=== PATIENT | female | born 1960 | race African-American/Black ===

== ENCOUNTER 2017-07-25 10:16 | Emergency (ER) | payer BC, OTHER ==
[~2017-07-25] VITALS: Ht 157.5 cm; Wt 81.6 kg
[2017-07-25 10:45] VITALS: BP 136/89
[2017-07-25] MEDS ORDERED: ACETAMINOPHEN 325 MG TAB PO ONE ×2 (10:48→11:00)
[2017-07-25] MEDS ORDERED: cefTRIAXone SOD 1,000 MG VL IM ONE (13:00)
== END 2017-07-25 13:48 | disposition home or self-care (01) ==
LOC: ER 10:16
DX: J20.9 Acute bronchitis, unspecified (principal); J02.9 Acute pharyngitis, unspecified; N39.0 Urinary tract infection, site not specified; F17.210 Nicotine dependence, cigarettes, uncomplicated
CPT/HCPCS: 71046; 81002; 96372; 99284; J0696

== ENCOUNTER → 2019-03-06 | Outpatient (CLI) | payer BC ==
[2019-03-06 10:58] LABS: Basophils # (auto) 0.1 uL; Basophils % (auto) 1.5 % (0.0-2.0); Eosinophils # (auto) 0.2 uL; Eosinophils % (auto) 4.6 % (0.0-7.0); Hematocrit 41.2 % (36.0-46.0); Hemoglobin 14.2 g/dL (12.2-16.2); Lymphocytes # (auto) 2.3 uL; Lymphocytes % (auto) 54.3 % (10.0-50.0); Mean Corpuscular Hgb Conc. 34.4 g/dL (32.0-36.0); Mean Corpuscular Volume 98.9 fL (80.0-100.0); Monocytes # (auto) 0.4 uL; Neutrophils # (auto) 1.3 uL; Neutrophils % (auto) 29.6 % (37.0-80.0); Nucleated Red Blood Cells % 0.1 %; Platelet Count (auto) 233 10^3/uL (140-450); Red Blood Cells 4.17 10^6/uL (4.0-5.20); Red Cell Distribution Width 14.6 % (11.8-14.3); White Blood Cell 4.3 10^3/uL (4.4-10.8)
[2019-03-06 11:13] LABS: INR 0.93 (0.9-1.15); Partial Thromboplastin Time 29.6 sec (23.64-32.05)
[2019-03-06 11:33] LABS: Albumin 3.5 g/dL (3.4-5.0); Potassium 4.2 mmol/L (3.5-5.1)
[2019-03-06 11:41] LABS: BUN/Creatinine Ratio 15.7; Bilirubin, Total 0.3 mg/dL (0.2-1.0); Total Protein 7.7 g/dL (6.4-8.2)
== END | disposition home or self-care (01) ==
LOC: LAB 10:04
DX: Z00.00 Encounter for general adult medical examination without abnormal findings (principal); D17.0 Benign lipomatous neoplasm of skin and subcutaneous tissue of head, face and neck; E66.9 Obesity, unspecified
CPT/HCPCS: 36415; 80053; 80061; 85025; 85610; 85730

== ENCOUNTER 2022-11-22 16:47 | Emergency (ER) | payer BC ==
[~2022-11-22] VITALS: Ht 157.5 cm; Wt 81.8 kg
[2022-11-22 17:25] LABS: Basophils # (auto) 0.1 10 ^3/uL (0-0.2); Basophils % (auto) 0.9 % (0.0-2.0); Eosinophils # (auto) 0.2 10 ^3/uL (0-0.8); Eosinophils % (auto) 3.4 % (0.0-7.0); Hematocrit 41.6 % (36.0-46.0); Hemoglobin 14.1 g/dL (12.2-16.2); Lymphocytes # (auto) 2.9 10 ^3/uL (0.4-5.4); Lymphocytes % (auto) 44.3 % (10.0-50.0); Mean Corpuscular Hemoglobin 33.7 pg (28.0-32.0); Mean Corpuscular Volume 99.2 fL (80.0-100.0); Monocytes # (auto) 0.6 10 ^3/uL (0-1.3); Monocytes % (auto) 8.9 % (0.0-12.0); Neutrophils # (auto) 2.8 10 ^3/uL (1.6-8.6); Neutrophils % (auto) 42.5 % (37.0-80.0); Nucleated Red Blood Cells % 0.1 %; Red Blood Cells 4.19 10^6/uL (4.0-5.20); Red Cell Distribution Width 14.8 % (11.8-14.3); White Blood Cell 6.7 10^3/uL (4.4-10.8)
[2022-11-22 17:28] LABS: Urine Bacteria NONE SEEN /hpf (None Seen); Urine Blood Negative /uL (Negative); Urine Specific Gravity 1.015 (1.001-1.035); Urine WBC <1 /hpf (0 - 5)
[2022-11-22 17:51] LABS: Albumin 3.5 g/dL (3.4-5.0); Calcium 8.9 mg/dL (8.5-10.1); Magnesium 2.3 mg/dL (1.6-2.6); Potassium 4.3 mmol/L (3.5-5.1)
[2022-11-22 17:54] LABS: BUN/Creatinine Ratio 17.9 (10.0-20.0); Bilirubin, Total 0.3 mg/dL (0.2-1.0); Total Protein 7.3 g/dL (6.4-8.2)
[2022-11-23 00:06] VITALS: BP 155/100
== END 2022-11-23 00:11 | disposition home or self-care (01) ==
LOC: ER 16:47
DX: R07.89 Other chest pain (principal); K29.70 Gastritis, unspecified, without bleeding; K21.9 Gastro-esophageal reflux disease without esophagitis; F17.210 Nicotine dependence, cigarettes, uncomplicated; Z88.5 Allergy status to narcotic agent; Z88.1 Allergy status to other antibiotic agents
CPT/HCPCS: 36415; 71045; 76705; 80053; 81001; 83735; 84484; 85025; 93005

== ENCOUNTER 2024-06-29 18:50 | Emergency (ER) | payer BC ==
[~2024-06-29] VITALS: Ht 157.5 cm; Wt 90.9 kg
[2024-06-29 19:05] VITALS: BP 161/75; PULSE 108; RESP 21; O2SAT 100
--- NOTE | 2024-06-29 19:27 | ED.PDOC ---
History of Present Illness HPI Comments 64-year-old female, with a history of GERD, HTN, obesity, and tobacco use, presents with complaint of shortness of breath, productive cough with associated chest-wall pain, and chills for 1 week, today. Patient describes phlegm as green in appearance and, recently, returning from a trip from [place]. She reports on no further pertinent or relevant information, such as recent sick contact, injuries, or strenuous activities. She denies having any hemoptysis, nausea, vomiting, fever, or other associated symptoms or modifying at this time Chief Complaint: Flu like Time Seen by MD: 18:50 Primary Care Provider: KURT Reviewed Notes: Nurses Notes, Medications, Allergies Allergies: Coded Allergies: Codeine (Verified Allergy, Unknown, 11/22/22) Erythromycin (Verified Allergy, Unknown, 11/22/22) Morphine (Verified Allergy, Unknown, 11/22/22) Uncoded Allergies: UNKNOWN (Allergy, Unknown, 07/25/17) Information Source: Patient Mode of Arrival: Ambulatory Severity: Moderate Timing: Weeks Duration: Since onset Prehospital treatment: None Past Medical History PAST MEDICAL HISTORY: GERD, HTN Past Medical History (Other): Obesity Surgical History: Denies all surgeries DISPLAY FABRICATOR History: Denies all DISPLAY FABRICATOR Hx Family History Family History: Unknown Social History Smoker: Cigarettes Alcohol: Denies ETOH Use Drugs: Denies Drug Use Lives In: Home Constitutional: reports: chills Respiratory: reports: cough, shortness of breath Musculoskeletal: reports: others (chest wall pain ) All Other Systems: Reviewed and Negative (negative unless otherwise stated above or in HPI) Physical Exam General Appearance: No Apparent Distress, Obese HEENT: Normal ENT Inspection, Pharynx Normal, TMs Normal Neck: Full Range of Motion, Non-Tender, Normal, Normal Inspection Respiratory: Chest Non-Tender, Lungs Clear, No Accessory Muscle Use, No Respiratory Distress, Normal Breath Sounds Cardiovascular: No Edema, No JVD, No Murmur, No Gallop, Normal Peripheral Pulses, Regular Rate/Rhythm Breast Exam: Deferred Gastrointestinal: No Organomegaly, Non Tender, No Pulsatile Mass, Normal Bowel Sounds, Soft Genitalia: Deferred Pelvic: Deferred Rectal: Deferred Extremities: No calf tenderness, Normal capillary refill, Normal inspection, Normal range of motion, Non-tender, No pedal edema Musculoskeletal : Apperance: Normal Neurologic: Alert, charge attendant II-XII nml as Tested, No Motor Deficits, Normal Affect, Normal Mood, No Sensory Deficits Cerebellar Function: Normal Reflexes: Normal Skin: Dry, Normal Color, Warm Lymphatic: No Adenopathy Was a procedure done? Was a procedure done?: No Differential Dx Considerations may include: URI, viral syndrome, Influenza A/B, Covid19, bronchitis, PNA, pleural effusions X-Ray, Labs, Meds, VS Vital Signs Date Time Temp Pulse Resp B/P (MAP) Pulse Ox O2 Delivery O2 Flow Rate FiO2 06/29/24 19:05 102.1 108 21 161/75 (103) 100 06/29/24 19:05 21 100 Room Air* 0 21 Lab Test 06/29/24 19:06 Range/Units Influenza Type A Antigen Negative Negative Influenza Type B Antigen Negative Negative SARS-CoV-2 Antigen (Rapid) Negative NEGATIVE [place] [address] Ph: [phone] DIAGNOSTIC IMAGING Diagnostic Imaging Report : [id number] Signed PATIENT: DL EDMONDSON ACCT: [id number] UNIT: [id number] : 1960 LOC: ER ROOM / BED: / AGE / SEX: 64 / F ADM STATUS: REG ER SERVICE 02 ORDERING PHYSICIAN: LEO RODRIGUEZ PROCEDURE(s): CXR1 - CHEST XRAY 1 VIEW REASON: cough ORDER NUMBER(s): [id number], ACCESSION NUMBER(s): [id number] EXAM: XY CHEST XRAY 1 VIEW TECHNIQUE: Single frontal chest radiograph CLINICAL HISTORY: cough COMPARISON: XY CHEST PORTABLE on DOS: 11/22/22 Findings/Impression: Frontal chest radiograph demonstrates no acute osseous or superficial soft tissue abnormalities. The trachea is midline. The cardiac silhouette and mediastinum are within normal limits. No pneumothorax, pleural effusions, or consolidations. ATED BY: KASSIE SONG DO DICTATED DATE/TIME: 06/29/242030 SIGNED BY: KASSIE SONG DO SIGNED DATE/TIME: 06/29/242030 CC: X-Ray, Labs, Meds, VS Comment Imaging: X-rays and CT scans were reviewed and interpreted by this provider, imaging shows no fractures and no pathological disease. Pending radiology maikol lange. Laboratory: Labs reviewed and interpreted by this provider. No significant abnormalities noted. Patient has prior medical visits reviewed. Med reconciliation performed Vital signs reviewed Time of 1ST Reevaluation: 19:20 Reevaluation 1ST: Unchanged Patient Education/Counseling: Diagnosis, Treatment, Need For Follow Up (Patient advised to follow-up in the emergency room in the next 24 to 48 hours if symptoms do not improve. Advised follow-up with PCP in the next 3 to 5 days. Patient verbalized understanding. ) Family Education/Counseling: Diagnosis, Treatment Additional Information I reviewed the following notes from patient's past medical encounters: previous ED visit physician document on 11/23/2023 The following tests were ordered, and results were reviewed by me: rapid influenza test A&B, Covid19 antigen nitesh, CXR I reviewed and agreed with the following test results read by other providers: CXR I discussed treatment and results with medical personnel Departure 1 Departure Time of Disposition: 21:45 Impression: Primary Impression: Upper respiratory infection Qualified Codes: J06.9 - Acute upper respiratory infection, unspecified Disposition: HOME / SELF CARE / HOMELESS Condition: Fair e-Prescriptions Amoxicillin & Pot Clavulanate (AUGMENTIN TABLET) 875 Mg Tb 875 MG PO BID for 7 Days, #14 TAB Prov: LEO RODRIGUEZ 06/29/24 Promethazine-Dm (Promethazine Dm 6.25-15 mg/5Ml) 1 Carisa Carisa 5 ML PO TID PRN, #240 ML Prov: LEO RODRIGUEZ 06/29/24 Discharged With: Self Critical Care Note Critical Care Time?: No Stability Stability form required: No Heart Score Heart Score: Heart Score Response (Comments) Value History N/A 0 EKG N/A 0 Age N/A 0 Risk Factors N/A 0 Troponin N/A 0 Total 0 I personally scribed for LEO RODRIGUEZ ([email or web address]) on 06/29/24 at 19:27. Electronically submitted by Carlos Meyers ([email or web address]). I personally scribed for LEO RODRIGUEZ ([email or web address]) on 06/29/24 at 21:12. Electronically submitted by Carlos Meyers ([email or web address]). LEO RODRIGUEZ [facility] Jun 29, 2024 19:27
[2024-06-29 19:44] LABS: COVID19 ANTIGEN SOFIA FIA NEGATIVE (NEGATIVE)
[2024-06-29 19:45] LABS: Rapid Influenza A Negative (Negative); Rapid Influenza B Negative (Negative)
--- NOTE | 2024-06-29 20:34 | DVH ---
EXAM: XY CHEST XRAY 1 VIEW TECHNIQUE: Single frontal chest radiograph CLINICAL HISTORY: cough COMPARISON: XY CHEST PORTABLE on DOS: 11/22/22 Findings/Impression: Frontal chest radiograph demonstrates no acute osseous or superficial soft tissue abnormalities. The trachea is midline. The cardiac silhouette and mediastinum are within normal limits. No pneumothorax, pleural effusions, or consolidations.
[2024-06-29] MEDS ORDERED: PROM1SOL4 PO (21:46)
[2024-06-29] MEDS ORDERED: AUG875T PO (21:46)
[2024-06-29] MEDS: ACETAMINOPHEN 325 MG TAB PO ONE (22:38)
== END 2024-06-29 22:40 | disposition home or self-care (01) ==
LOC: ER 18:50
DX: J06.9 Acute upper respiratory infection, unspecified (principal); K21.9 Gastro-esophageal reflux disease without esophagitis; I10 Essential (primary) hypertension; F17.210 Nicotine dependence, cigarettes, uncomplicated; Z88.1 Allergy status to other antibiotic agents; Z88.6 Allergy status to analgesic agent; Z20.822 Contact with and (suspected) exposure to COVID-19
CPT/HCPCS: 36415; 71045; 87426; 87804

== ENCOUNTER 2024-07-16 08:43 | Inpatient (IN) | payer BC, OTHER ==
[~2024-07-16] VITALS: Ht 157.5 cm; Wt 95.6 kg
[~2024-07-16 08:43] MED LIST: ALBU108A5 IN; AUG875T PO; BUDE1AER16 IN; METH-1181 PO; PROM1SOL4 PO
--- NOTE | 2024-07-16 09:01 | ED.PDOC ---
History of Present Illness HPI Comments 64-year-old female came to the ER stating that she has been having shortness a breath epigastric pain especially when swelling for the past two days. She does have a history of hypertension congestive heart failure for which she was taking Lasix till few days ago. Her physician has discontinue Lasix and started on Bumex. She continues to have shortness a breath with pain in the triage area. Her saturation pristine on room air. Normal heart rate. Denies any other symptoms. Time Seen by MD: 08:44 Primary Care Provider: KURT Reviewed Notes: Nurses Notes, Medications, Allergies Allergies: Coded Allergies: Codeine (Verified Allergy, Unknown, 11/22/22) Erythromycin (Verified Allergy, Unknown, 11/22/22) Morphine (Verified Allergy, Unknown, 11/22/22) Uncoded Allergies: UNKNOWN (Allergy, Unknown, 07/25/17) Home Meds Active Scripts Amoxicillin & Pot Clavulanate (AUGMENTIN TABLET) 875 Mg Tb, 875 MG PO BID for 7 Days, #14 TAB Prov:LEO RODRIGUEZ 06/29/24 Promethazine-Dm (Promethazine Dm 6.25-15 mg/5Ml) 1 Carisa Carisa, 5 ML PO TID PRN, #240 ML Prov:LEO RODRIGUEZ 06/29/24 Information Source: Patient Mode of Arrival: Wheelchair Severity: Moderate Timing: Days Duration: Since onset Past Medical History PAST MEDICAL HISTORY: GERD, HTN Surgical History: Denies all surgeries FIELD TRAFFIC INVESTIGATOR History: Denies all FIELD TRAFFIC INVESTIGATOR Hx Family History Family History: Unknown Social History Smoker: Cigarettes Alcohol: Denies ETOH Use Drugs: Denies Drug Use Lives In: Home Constitutional: denies: chills, diaphoresis, fatigue, fever, malaise, sweats, weakness, others EENTM: denies: blurred vision, double vision, ear bleeding, ear discharge, ear drainage, ear pain, ear ringing, eye pain, eye redness, hearing loss, mouth pain, mouth swelling, nasal discharge, nose bleeding, nose congestion, nose pain, photophobia, tearing, throat pain, throat swelling, voice changes, others Respiratory: reports: shortness of breath; denies: cough, hemoptysis, orthopnea, SOB at rest, SOB with excertion, stridor, wheezing, others Cardiovascular: reports: chest pain; denies: dizzy spells, diaphoresis, Dyspnea on exertion, edema, irregular heart beat, left arm pain, lightheadedness, palpitations, PND, syncope, others Gastrointestinal: denies: abdomen distended, abdominal pain, blood streaked bowels, constipated, diarrhea, dysphagia, difficulty swallowing, hematemesis, melena, nausea, poor appetite, poor fluid intake, rectal bleeding, rectal pain, vomiting, others Genitourinary: denies: abnormal vagina bleeding, burning, dyspareunia, dysuria, flank pain, frequency, hematuria, incontinence, pain, , vagina discharge, urgency, others Neurological: denies: dizziness, fainting, headache, left sided numbness, left sided weakness, numbness, paresthesia, pre-existing deficit, right sided numbness, right sided weakness, seizure, speech problems, tingling, tremors, weakness, others Musculoskeletal: denies: back pain, gout, joint pain, joint swelling, muscle pain, muscle stiffness, neck pain, others Integumetry: denies: bruises, change in color, change in hair/nails, dryness, laceration, lesions, lumps, rash, wounds, others Allergic/Immunocompromised: denies: Difficulty Healing, Frequent Infections, Hives, Itching, others Hematologic/Lymphatic: denies: anemia, blood clots, easy bleeding, easy bruising, swollen glands, others Endocrine: denies: excessive hunger, excessive sweating, excessive thirst, excessive urination, flushing, intolerance to cold, intolerance to heat, unexplained weight gain, unexplained weight loss, others Psychiatric: denies: anxiety, bipolar disorder, depression, hopeless, panic disorder, schizophrenia, sleepless, suicidal, others Physical Exam General Appearance: Moderate Distress HEENT: Normal ENT Inspection, Pharynx Normal, TMs Normal Neck: Full Range of Motion, Non-Tender, Normal, Normal Inspection Respiratory: Chest Non-Tender, Lungs Clear, No Accessory Muscle Use, No Respiratory Distress, Normal Breath Sounds Cardiovascular: No Edema, No JVD, No Murmur, No Gallop, Normal Peripheral Pulses, Regular Rate/Rhythm Breast Exam: Deferred Gastrointestinal: No Organomegaly, Non Tender, No Pulsatile Mass, Normal Bowel Sounds, Soft Genitalia: Deferred Pelvic: Deferred Rectal: Deferred Extremities: No calf tenderness, Normal capillary refill, Normal inspection, Normal range of motion, Non-tender, No pedal edema Musculoskeletal : Apperance: Normal Neurologic: Alert, ceramic painter II-XII nml as Tested, No Motor Deficits, Normal Affect, Normal Mood, No Sensory Deficits Cerebellar Function: Normal Reflexes: Normal Skin: Dry, Normal Color, Warm Peripheral Pulses: 3+ Radial (R), 3+ Radial (L) Lymphatic: No Adenopathy Was a procedure done? Was a procedure done?: No Differential Dx Considerations may include: Hypertension Pneumonitis X-Ray, Labs, Meds, VS Vital Signs Date Time Temp Pulse Resp B/P (MAP) Pulse Ox O2 Delivery O2 Flow Rate FiO2 07/16/24 12:03 97.9 79 20 133/71 (91) 99 97.9 07/16/24 09:31 85 20 93 Room Air* 0 21 07/16/24 09:01 92 07/16/24 08:59 20 97 Room Air* 0 21 07/16/24 08:59 99.4 80 20 158/83 (108) 97 Lab Test 07/16/24 09:48 07/16/24 09:01 Range/Units White Blood Count 8.4 4.4-10.8 10^3/uL Red Blood Count 4.40 4.0-5.20 10^6/uL Hemoglobin 14.2 12.2-16.2 g/dL Hematocrit 42.8 36.0-46.0 % Mean Corpuscular Volume 97.2 80.0-100.0 fL Mean Corpuscular Hemoglobin 32.2 H 28.0-32.0 pg Mean Corpuscular Hemoglobin Concent 33.1 32.0-36.0 g/dL Red Cell Distribution Width 15.6 H 11.8-14.3 % Platelet Count 225 140-450 10^3/uL Mean Platelet Volume 8.7 6.9-10.8 fL Neutrophils (%) (Auto) 69.9 37.0-80.0 % Lymphocytes (%) (Auto) 21.2 10.0-50.0 % Monocytes (%) (Auto) 8.0 0.0-12.0 % Eosinophils (%) (Auto) 0.6 0.0-7.0 % Basophils (%) (Auto) 0.3 0.0-2.0 % Neutrophils # (Auto) 5.9 1.6-8.6 10 ^3/uL Lymphocytes # (Auto) 1.8 0.4-5.4 10 ^3/uL Monocytes # (Auto) 0.7 0-1.3 10 ^3/uL Eosinophils # (Auto) 0.1 0-0.8 10 ^3/uL Basophils # (Auto) 0 0-0.2 10 ^3/uL Nucleated Red Blood Cells 0.1 % Sodium Level 141 136-145 mmol/L Potassium Level 3.7 3.5-5.1 mmol/L Chloride Level 99 98-107 mmol/L Carbon Dioxide Level 36 H 20-31 mmol/L Anion Gap 6 5-15 Blood Urea Nitrogen 14 9-23 mg/dL Creatinine 1.08 H 0.550-1.02 mg/dL Glomerular Filtration Rate Calc 58 >90 mL/min BUN/Creatinine Ratio 13.0 10.0-20.0 Serum Glucose 86 74-106 mg/dL Calcium Level 9.8 8.7-10.4 mg/dL Troponin I High Sensitivity < 3 L </=34 ng/L B-Type Natriuretic Peptide 53.06 0-100 pg/mL Urine Color Colorless Yellow Urine Clarity Clear Clear Urine pH 7.5 5.0-9.0 Urine Specific [place] 1.005 1.001-1.035 Urine Protein Negative Negative Urine Ketones Negative Negative Urine Blood Negative Negative /uL Urine Nitrite Negative Negative Urine Bilirubin Negative Negative Urine Urobilinogen Normal Negative mg/dL Urine Leukocyte Esterase Negative Negative /uL Urine RBC 1 0 - 4 /hpf Urine Microscopic WBC 0-5 /HPF Urine Squamous Epithelial Cells Few <5 /hpf Urine Bacteria None seen None Seen /hpf Urine Glucose Normal Normal mg/dL Current Medications Medications (Trade) Dose Ordered Sig/[facility] Route Start Time Stop Time Status Last Admin Methylprednisolone Sodium Succinate (Solu Medrol) 125 mg ONCE ONCE IV 07/16/24 09:15 07/16/24 09:16 DC 07/16/24 09:21 Pantoprazole Sodium (Protonix) 40 mg ONCE ONCE IV 07/16/24 09:15 07/16/24 09:16 DC 07/16/24 09:21 Patient alert. Complaining of shortness a breath chest pain. Vitals stable. Answering all questions. EKG reviewed does not show any acute changes. Was given steroid. Was given Protonix. Counseled patient on effects of smoking cigarettes for 15 minutes. Possible CHF. Reviewed her previous history. Explained to the patient. Continue cardiac monitoring. Time of 1ST Reevaluation: 08:58 Reevaluation 1ST: Unchanged Patient Education/Counseling: Diagnosis, Treatment, Prognosis Family Education/Counseling: No Family Present Departure 1 Departure Time of Disposition: 08:59 Impression: Primary Impression: Diastolic heart failure Qualified Codes: I50.33 - Acute on chronic diastolic (congestive) heart failure Additional Impressions: Gastritis Qualified Codes: K29.00 - Acute gastritis without bleeding Pneumonitis Disposition: ADMITTED INPATIENT Admit to: Med Surg Condition: Guarded Critical Care Note Critical Care Time?: No Stability Stability form required: No Heart Score Heart Score: Heart Score Response (Comments) Value History Slightly Suspicious 0 EKG Normal 0 Age 45-64 1 Risk Factors >3 or Hx ASHD 2 Troponin Normal limit 0 Total 3 JENNY LOMELI MD Jul 16, 2024 09:01
--- NOTE | 2024-07-16 09:05 | ECG ---
[facility] Test Date: 2024-07-16 Test Time: 09:01:23 Pat Name: DL EDMONDSON Department: ER Room: Gender: F Conveyor Line Bakery Worker: HASMUKH : 1960 Requested By: JENNY LOMELI Order Number: [id number] Reading MD: Rj Scott Measurements Intervals [place] Rate: 92 P: 69 NH: 113 QRS: 13 QRSD: 91 T: 46 QT: 331 QTc: 410 Interpretive Statements Sinus rhythm Borderline short NH interval Low voltage, precordial leads Electronically Signed On 07-16-2024 13:35:17 PST by Rj Scott Please click the below link to view image of tracing.
--- NOTE | 2024-07-16 09:15 | DVH ---
CHEST RADIOGRAPH Indication: sob Technique: Single frontal view of the chest was obtained COMPARISON: XY CHEST XRAY 1 VIEW on DOS: 06/29/24, XY CHEST PORTABLE on DOS: 11/22/22 FINDINGS: Lines and Tubes: None Lungs: Clear Pleura: No effusion. No pneumothorax. Cardiomediastinal contours: Unremarkable Bones: Unremarkable IMPRESSION: No acute disease.
[2024-07-16] MEDS: PANTOPRAZOLE 40 MG/10 ML VIAL INJ IV ONE (09:21)
[2024-07-16] MEDS: methylPREDNISolone SOD SUCC 125 MG/2 ML VL IV ONE (09:21)
[2024-07-16 09:31] VITALS: PULSE 85; RESP 20; O2SAT 93
[2024-07-16 10:25] LABS: Chloride 99 mmol/L (98-107); Potassium 3.7 mmol/L (3.5-5.1); Sodium 141 mmol/L (136-145)
[2024-07-16 10:26] LABS: Anion Gap 6 (5-15); Basophils # (auto) 0 10 ^3/uL (0-0.2); Basophils % (auto) 0.3 % (0.0-2.0); Eosinophils # (auto) 0.1 10 ^3/uL (0-0.8); Eosinophils % (auto) 0.6 % (0.0-7.0); Hematocrit 42.8 % (36.0-46.0); Hemoglobin 14.2 g/dL (12.2-16.2); Lymphocytes # (auto) 1.8 10 ^3/uL (0.4-5.4); Lymphocytes % (auto) 21.2 % (10.0-50.0); Mean Corpuscular Hemoglobin 32.2 pg (28.0-32.0); Mean Corpuscular Hgb Conc. 33.1 g/dL (32.0-36.0); Mean Corpuscular Volume 97.2 fL (80.0-100.0); Monocytes # (auto) 0.7 10 ^3/uL (0-1.3); Neutrophils # (auto) 5.9 10 ^3/uL (1.6-8.6); Neutrophils % (auto) 69.9 % (37.0-80.0); Nucleated Red Blood Cells % 0.1 %; Platelet Count (auto) 225 10^3/uL (140-450); Red Cell Distribution Width 15.6 % (11.8-14.3); White Blood Cell 8.4 10^3/uL (4.4-10.8)
[2024-07-16 10:26] LABS: Urine Blood Negative /uL (Negative); Urine Clarity Clear (Clear); Urine Color Colorless (Yellow); Urine Protein, UAD Negative (Negative); Urine Specific Gravity 1.005 (1.001-1.035); Urine Squamous Epithelial Cell FEW /hpf (<5); Urine Urobilinogen Normal (Negative); Urine pH 7.5 (5.0-9.0)
[2024-07-16 10:27] LABS: Calcium 9.8 mg/dL (8.7-10.4); Carbon Dioxide 36 mmol/L (20-31)
[2024-07-16 10:28] LABS: Urine Bacteria NONE SEEN /hpf (None Seen)
[2024-07-16 10:32] LABS: Blood Urea Nitrogen 14 mg/dL (9-23); Glucose 86 mg/dL (74-106)
[2024-07-16] MEDS: ONDANSETRON HCL 4 MG/2 ML VIAL IV ONE (14:07)
[2024-07-16] MEDS: HYDROMORPHONE HCL 1 MG/ML INJ IV ONE (14:08)
[2024-07-16] MEDS ORDERED: BUME1TAB3 PO (16:54)
[2024-07-16] MEDS ORDERED: MET25T PO (16:54)
[2024-07-16] MEDS ORDERED: PRED10TA PO (16:54)
[2024-07-16] MEDS ORDERED: PREG100C PO (16:57)
[2024-07-16] MEDS ORDERED: PANT40TA2 PO (16:57)
[2024-07-16] MEDS ORDERED: ASPI1TAB20 PO (16:57)
[2024-07-16] MEDS ORDERED: DOCUSATE SOD 100 MG CAP PO PRN (17:00)
[2024-07-16] MEDS ORDERED: MORPHINE SULFATE INJ 2 MG/ml SYRG IV PRN (17:00)
[2024-07-16] MEDS ORDERED: IPRATROPIUM BROM 0.5 MG/2.5ML INH SOL NEB PRN (17:00)
[2024-07-16] MEDS ORDERED: NITROGLYCERIN 0.4 MG SL TAB SL PRN (17:00)
[2024-07-16] MEDS ORDERED: ALBUTEROL SULF 2.5 MG/0.5ML(0.5%) NEB SOLN NEB PRN (17:00)
--- NOTE | 2024-07-16 17:11 | DVHHP2 ---
History of Present Illness Reason for Visit: Difficulty swallowing History of Present Illness Nohemy Melendez is a 64-year-old female with past medical history of hypertension, CHF, asthma, anxiety, and depression, who came in for difficulty swallowing. Patient states she was recently prescribed Lasix. After taking it she began having tongue swelling and throat swelling. She called her provider and was switched to Bumex 1 mg. However she states it is still difficult to swallow and she had not been able to eat the last 2 days. Patient also states that she was hospitalized a little over a week ago for her asthma and was placed on a tapering dose of prednisone. Cardiovascular: CHF, HTN Pulmonary: Asthma Psych: Anxiety, Depression Past Surgical History: Appendectomy, (x 1), Total hip replacement (bilateral) Family History: None Smoke: No ALCOHOL: none Drugs: None Lives: Alone Domestic Violence: Neg Review of Systems Constitutional: Yes: Malaise; No: Fever, Chills, Sweats, Weakness, Other Eyes: No: Pain, Vision change, Conjunctivae inflammation, Eyelid inflammation, Other, Redness ENT: Mouth swelling, Throat pain, Throat swelling; No: Ear pain, Ear discharge, Nose pain, Nose discharge, Nose congestion, Mouth pain, Other Respiratory: No: Cough, Dry, Shortness of breath, SOB with excertion, Wheezing, Hemoptysis, Pleuritic Pain, Sputum, Wheezing, Other Cardiovascular: No: Chest Pain, Palpitations, Orthopnea, Paroxysmal Noc. Dyspnea, Edema, Lt Headedness, Other Gastrointestinal: No: Nausea, Vomiting, Abdominal Pain, Diarrhea, Constipation, Melena, Hematochezia, Other Genitourinary: No Dysuria, No Frequency, No Incontinence, No Hematuria, No Re tention, No Other Musculoskeletal: No: other, neck pain, shoulder pain, arm pain, back pain, hand pain, leg pain, foot pain Skin: No: Rash, Lesions, Jaundice, Bruising, Other Neurological: No: Weakness, Numbness, Incoordination, Change in speech, Confusion, Seizures, Other Allergies: Coded Allergies: Codeine (Verified Allergy, Unknown, 11/22/22) Erythromycin (Verified Allergy, Unknown, 11/22/22) Morphine (Verified Allergy, Unknown, 11/22/22) Uncoded Allergies: UNKNOWN (Allergy, Unknown, 07/25/17) Medications Current Medications Medications Dose Ordered Sig/[facility] Route Start Time Stop Time Status Last Admin Dose Admin Sodium Chloride 10 ml Q8HR IV 07/16/24 22:00 UNV Acetaminophen/ Hydrocodone Bitart 1 tab Q4HP PRN PO 07/16/24 17:00 UNV Ondansetron HCl 4 mg Q4HP PRN IV 07/16/24 17:00 UNV Docusate Sodium 100 mg BIDPRN PRN PO 07/16/24 17:00 UNV Acetaminophen 650 mg Q6HP PRN PO 07/16/24 17:00 UNV Nitroglycerin 0.4 mg Q5MINP PRN SL 07/16/24 17:00 UNV Morphine Sulfate 2 mg Q30M PRN IV 07/16/24 17:00 UNV Bumetanide 1 mg DAILY PO 07/17/24 10:00 UNV Metoprolol Tartrate 25 mg BID PO 07/16/24 22:00 UNV Patient Own Medication 1 tab DAILY PO 07/17/24 10:00 UNV Exam Vital Signs Vital Signs Date Time Temp Pulse Resp B/P (MAP) Pulse Ox O2 Delivery O2 Flow Rate FiO2 07/16/24 14:38 98 18 134/88 07/16/24 14:17 99.6 94 99.6 07/16/24 09:31 Room Air* 0 21 General Appearance: Alert, Oriented X3, Cooperative, mild distress HEENT: Atraumatic, PERRLA, EOMI Respiratory: Clear to auscultation, Normal air movement Cardiovascular: Regular rate, Normal S1, Normal S2, No murmurs Abdominal: Normal bowel sounds, Soft, No tenderness Extremities: No clubbing, No cyanosis, No edema Skin: No rashes, No breakdown, No significant lesion Neuro: Normal gait, Normal speech, Strength at 5/5 X4 ext Psych/Mental Status: Mental status NL, Mood NL Labs/Xrays Labs Test 07/16/24 09:48 07/16/24 09:01 Range/Units White Blood Count 8.4 4.4-10.8 10^3/uL Red Blood Count 4.40 4.0-5.20 10^6/uL Hemoglobin 14.2 12.2-16.2 g/dL Hematocrit 42.8 36.0-46.0 % Mean Corpuscular Volume 97.2 80.0-100.0 fL Mean Corpuscular Hemoglobin 32.2 H 28.0-32.0 pg Mean Corpuscular Hemoglobin Concent 33.1 32.0-36.0 g/dL Red Cell Distribution Width 15.6 H 11.8-14.3 % Platelet Count 225 140-450 10^3/uL Mean Platelet Volume 8.7 6.9-10.8 fL Neutrophils (%) (Auto) 69.9 37.0-80.0 % Lymphocytes (%) (Auto) 21.2 10.0-50.0 % Monocytes (%) (Auto) 8.0 0.0-12.0 % Eosinophils (%) (Auto) 0.6 0.0-7.0 % Basophils (%) (Auto) 0.3 0.0-2.0 % Neutrophils # (Auto) 5.9 1.6-8.6 10 ^3/uL Lymphocytes # (Auto) 1.8 0.4-5.4 10 ^3/uL Monocytes # (Auto) 0.7 0-1.3 10 ^3/uL Eosinophils # (Auto) 0.1 0-0.8 10 ^3/uL Basophils # (Auto) 0 0-0.2 10 ^3/uL Nucleated Red Blood Cells 0.1 % Sodium Level 141 136-145 mmol/L Potassium Level 3.7 3.5-5.1 mmol/L Chloride Level 99 98-107 mmol/L Carbon Dioxide Level 36 H 20-31 mmol/L Anion Gap 6 5-15 Blood Urea Nitrogen 14 9-23 mg/dL Creatinine 1.08 H 0.550-1.02 mg/dL Glomerular Filtration Rate Calc 58 >90 mL/min BUN/Creatinine Ratio 13.0 10.0-20.0 Serum Glucose 86 74-106 mg/dL Calcium Level 9.8 8.7-10.4 mg/dL Troponin I High Sensitivity < 3 L </=34 ng/L B-Type Natriuretic Peptide 53.06 0-100 pg/mL Urine Color Colorless Yellow Urine Clarity Clear Clear Urine pH 7.5 5.0-9.0 Urine Specific [place] 1.005 1.001-1.035 Urine Protein Negative Negative Urine Ketones Negative Negative Urine Blood Negative Negative /uL Urine Nitrite Negative Negative Urine Bilirubin Negative Negative Urine Urobilinogen Normal Negative mg/dL Urine Leukocyte Esterase Negative Negative /uL Urine RBC 1 0 - 4 /hpf Urine Microscopic WBC 0-5 /HPF Urine Squamous Epithelial Cells Few <5 /hpf Urine Bacteria None seen None Seen /hpf Urine Glucose Normal Normal mg/dL CHEST RADIOGRAPH FINDINGS: Lines and Tubes: None Lungs: Clear Pleura: No effusion. No pneumothorax. Cardiomediastinal contours: Unremarkable Bones: Unremarkable IMPRESSION: No acute disease. Assessment/Plan Assessment/Plan Assessment: Acute on chronic heart failure, Allergic reaction, Asthma, Depression, Plan: Admit to Tele, IV steroids, Breathing treatments as needed, Home medications reconciled, Consider cardiology consult if symptoms do not improve, Plan discussed with: Patient My Orders Orders - NILA PERRY Procedure Category Date Status Time Admit ADMIT 07/16/24 Transmitted 16:47 Code Status CODE 07/16/24 Transmitted 16:47 2 Gm Sodium Diet DIET 07/16/24 Transmitted Dinner Sodium Chloride Lock PHA 07/16/24 Logged (Saline Lock Ns) 22:00 Hydrocodone-Acet PHA 07/16/24 Logged 5/325mg Tab ([place] 17:00 Ondansetron Hcl PHA 07/16/24 Logged (Zofran) 17:00 Docusate Sodium PHA 07/16/24 Logged Capsule (Colace 17:00 Complete Blood Count LAB 07/17/24 Verified 04:00 Comprehensive LAB 07/17/24 Verified Metabolic Panel 04:00 Condition: Serious SABI 07/16/24 In Process 16:47 Acetaminophen Tablet PHA 07/16/24 Logged (Tylenol Tablet) 17:00 Nitroglycerin PHA 07/16/24 Logged Sublingual (Ntrostat 17:00 Morphine Sulfate PHA 07/16/24 Logged Injection 17:00 Stat Ekg For Chest SABI 07/16/24 In Process Pain 16:47 Notify Of Changes SABI 07/16/24 In Process From Base 16:47 Kick Press Operator For SABI 07/16/24 In Process 24 Hours 16:47 Emergency Dysrhythmia SABI 07/16/24 In Process Protocol 16:47 Rhythm Strips Once SABI 07/16/24 In Process Every Shift 16:47 Oxygen By Nasal RT 07/16/24 Transmitted Cannula 16:47 Bumetanide Tablet PHA 07/17/24 Logged (Bumex Tablet) 10:00 Metoprolol Tartrate PHA 07/16/24 Logged Tablet (Lopressor Ta 22:00 (Nf) Prednisone PHA 07/17/24 Logged 10:00 Aspirin Enteric PHA 07/17/24 Verified Coated Tablet 10:00 Pantoprazole Tablet PHA 07/17/24 Verified (Protonix Tablet) 10:00 (Nf) Pregabalin PHA 07/16/24 Verified (Lyrica) 22:00 Date of Service: Jul 16, 2024 Billing Provider: NILA PERRY Common Visit Codes: [id number] INP/OBS CARE (MOD) NILA PERRY Jul 16, 2024 17:11
[2024-07-16 20:56] VITALS: O2SAT 98
[2024-07-16] MEDS: ACETAMINOPHEN 325 MG TAB PO PRN (21:53)
[2024-07-16] MEDS: METOPROLOL TARTRATE 25 MG TAB PO SCH (21:54)
[2024-07-16] MEDS: SODIUM CHLOR 0.9% PF (SALINE LOCK) 10ML VIAL/SYR IV SCH (21:54)
[2024-07-16] MEDS: PREGABALIN 25 MG CAP PO SCH (21:54)
[2024-07-16 22:04] VITALS: PULSE 75; RESP 18; O2SAT 96
[2024-07-16 22:42] VITALS: BP 105/63; PULSE 75; RESP 18; TEMP 97.9; O2SAT 98
[2024-07-17] VITALS (9 sets, daily range): BP systolic 116–165; BP diastolic 63–84; PULSE 61–76; RESP 16–19; TEMP 97.7–98.4; O2SAT 95–98
[2024-07-17] MEDS ORDERED: traMADol HCL 50 MG TAB PO ONE (00:15)
[2024-07-17 06:39] LABS: Basophils # (auto) 0 10 ^3/uL (0-0.2); Basophils % (auto) 0.4 % (0.0-2.0); Eosinophils # (auto) 0 10 ^3/uL (0-0.8); Eosinophils % (auto) 0.1 % (0.0-7.0); Hematocrit 41.5 % (36.0-46.0); Hemoglobin 13.9 g/dL (12.2-16.2); Lymphocytes # (auto) 1.2 10 ^3/uL (0.4-5.4); Lymphocytes % (auto) 13.3 % (10.0-50.0); Mean Corpuscular Hemoglobin 32.6 pg (28.0-32.0); Mean Corpuscular Hgb Conc. 33.5 g/dL (32.0-36.0); Mean Corpuscular Volume 97.2 fL (80.0-100.0); Monocytes # (auto) 0.7 10 ^3/uL (0-1.3); Monocytes % (auto) 7.2 % (0.0-12.0); Neutrophils # (auto) 7.4 10 ^3/uL (1.6-8.6); Nucleated Red Blood Cells % 0.1 %; Platelet Count (auto) 218 10^3/uL (140-450); Red Blood Cells 4.27 10^6/uL (4.0-5.20); Red Cell Distribution Width 15.5 % (11.8-14.3); White Blood Cell 9.4 10^3/uL (4.4-10.8)
[2024-07-17 06:50] LABS: Alanine Aminotransferase 19 U/L (7-40); Alkaline Phosphatase 51 U/L (46-116); Anion Gap 7 (5-15); BUN/Creatinine Ratio 16.8 (10.0-20.0); Bilirubin, Total 0.8 mg/dL (0.2-1.0); Blood Urea Nitrogen 17 mg/dL (9-23); Calcium 9.8 mg/dL (8.7-10.4); Carbon Dioxide 31 mmol/L (20-31); Chloride 101 mmol/L (98-107); Glucose 101 mg/dL (74-106); Potassium 4.5 mmol/L (3.5-5.1); Sodium 139 mmol/L (136-145); Total Protein 6.6 g/dL (5.7-8.2)
[2024-07-17 06:54] LABS: Aspartate Aminotransferase 9 U/L (13-40)
[2024-07-17] MEDS: predniSONE 5 MG TAB PO SCH (10:16)
[2024-07-17] MEDS: methylPREDNISolone SOD SUCC 40 MG/ML VL IV SCH (10:16)
[2024-07-17] MEDS: BUMETANIDE 1 MG TAB PO SCH (10:17)
[2024-07-17] MEDS: ASPirin-EC 81 mg tab PO SCH (10:17)
[2024-07-17] MEDS: PANTOPRAZOLE 40 MG TAB PO SCH (10:17)
[2024-07-17] MEDS: cefTRIAXone 1GM/50ML D5W 50 ML IV ONE (13:00)
--- NOTE | 2024-07-17 14:13 | DVH ---
_ Procedure: CT NECK WITHOUT CONTRAST Study Date and Requested Time: 07/17/2024 01:10 PM History: Throat pain, tonsillitis Comparison: None Dose: CTDI: 23.86 mGy DLP: 650.32 mGycm Technique: Multiplanar images obtained through the neck without contrast Findings: The glottis is closed limiting evaluation. Otherwise, the Nasopharynx, oropharynx, hypopharynx, and larynx normal in caliber without evidence of focal mass. Parotid, submandibular, and sublingual gland s within normal limits. Tongue within normal limits. Cervical soft tissues within normal limits with no evidence of significant cervical lymphadenopathy. Thyroid gland within normal limits. No evidence of superior mediastinal lymphadenopathy. Emphysematous changes of the lung apices with calcified granuloma of the right upper lobe of the lung . Multilevel moderate degenerative changes of the cervical spine. Impression: No evidence of significant abnormality involving the cervical soft tissues or surrounding structures within the limitations of noncontrast study..
[2024-07-17] MEDS: LIDOCAINE VISCOUS 2% 15ML UD MT ONE (16:13)
[2024-07-17] MEDS: THROAT LOZENGES(CEPASTAT) MT PRN (20:52)
[2024-07-17 21:12] LABS: Rapid Strep A Screen-Throat Negative
--- NOTE | 2024-07-17 23:00 | DVHINCON2 ---
Date of service: Jul 17, 2024 Referring Physician Jacque Osborne Reason for Consultation Epigastric pain History of Present Illness Nohemy Melendez is a 64-year-old female with past medical history of hypertension, CHF, asthma, anxiety, and depression, who came in for difficulty swallowing. Patient states she was recently prescribed Lasix. After taking it she began having tongue swelling and throat swelling. She called her provider and was switched to Bumex 1 mg. However she states it is still difficult to swallow and she had not been able to eat the last 2 days. Strept throat ordered. Patient also states that she was hospitalized a little over a week ago for her asthma and was placed on a tapering dose of prednisone. GI consult requested for evaluation of epigastric pain and dysphagia Past Medical History Cardiovascular: CHF, HTN Pulmonary: Asthma Psych: Anxiety, Depression Past Surgical History Past Surgical History: Appendectomy, (x 1), Total hip replacement (bilateral) Family History: Patient reports no known family medical history. Allergies: Coded Allergies: Furosemide (Verified Allergy, Severe, 07/17/24) ANAPHYLACTIC REACTION/ SWELLING IN THROAT Codeine (Verified Allergy, Unknown, 11/22/22) Erythromycin (Verified Allergy, Unknown, 11/22/22) Morphine (Verified Allergy, Unknown, 11/22/22) Uncoded Allergies: UNKNOWN (Allergy, Severe, 07/17/24) LASIX CAUSED ANAPHYLACTIC REACTION Home Meds Reported Medications Budesonide-Formoterol Fumarate (Breyna 160-4.5 Mcg/Act) 1 Aer Aer, 2 PUFF IN BID for 30 Days, #10.3 07/17/24 Albuterol Sulfate (Albuterol Sulfate Hfa) 108 Mcg/Act Aer, 1 PUFF IN Q4HR PRN for 20 Days, #8.5 07/17/24 Methocarbamol (Methocarbamol) 500 Mg Tab, 2 TAB PO QID for 30 Days, #240 07/17/24 Pantoprazole Sodium Sesquihydr (Protonix) 40 Mg Tab, 40 MG PO DAILY, #30 TAB 07/16/24 Aspirin (Aspir-81) 81 Mg Tab, 1 TAB PO DAILY, #30 TAB 5 Refills 07/16/24 Pregabalin (Lyrica) 100 Mg Cap, 1 CAP PO TID, #90 CAP 2 Refills 07/16/24 Prednisone (Prednisone) 10 Mg Tab, 1 TAB PO DAILY 07/16/24 Metoprolol Tartrate (Lopressor) 25 Mg Tb, 1 TAB PO BID 07/16/24 Bumetanide (Bumetanide) 1 Mg Tab, 1 TAB PO DAILY 07/16/24 Discontinued Scripts Amoxicillin & Pot Clavulanate (AUGMENTIN TABLET) 875 Mg Tb, 875 MG PO BID for 7 Days, #14 TAB Prov:AMANDA RODRIGUEZFLAKO Urb[place] [employer] 06/29/24 Current Medications Current Medications Medications (Trade) Dose Ordered Sig/Mara Route PRN Reason Start Time Stop Time Status Last Admin Bumetanide (Bumex Tablet) 1 mg DAILY PO 07/17/24 10:00 07/17/24 10:17 Prednisone 10 mg DAILY PO 07/17/24 10:00 07/17/24 10:16 Aspirin (Ecotrin Enteric Coated Tablet) 81 mg DAILY PO 07/17/24 10:00 07/17/24 10:17 Pantoprazole Sodium (Protonix Tablet) 40 mg DAILY PO 07/17/24 10:00 07/17/24 10:17 Methylprednisolone Sodium Succinate (Solu Medrol) 40 mg DAILY IV 07/17/24 10:00 07/17/24 10:16 Ceftriaxone Sodium 50 ml @ 100 mls/hr DAILY@09 IV 07/18/24 09:00 Throat Lozenges (Cepastat Lozenges) 1 denisse Q2HP PRN MT FOR SORE THROAT 07/17/24 18:00 07/17/24 20:52 Vital Signs Vital Signs Date Time Temp Pulse Resp B/P (MAP) Pulse Ox O2 Delivery O2 Flow Rate FiO2 07/17/24 21:57 64 151/74 07/17/24 16:25 98.1 19 97 98.1 07/17/24 08:00 Room Air* 0 21 Physical Exam General Appearance: Alert, Oriented X3, Cooperative, mild distress HEENT: Atraumatic, PERRLA, EOMI Respiratory: Clear to auscultation, Normal air movement Cardiovascular: Regular rate, Normal S1, Normal S2, No murmurs Abdominal: Normal bowel sounds, Soft, No tenderness Extremities: No clubbing, No cyanosis, No edema Skin: No rashes, No breakdown, No significant lesion Neuro: Normal gait, Normal speech, Strength at 5/5 X4 ext Psych/Mental Status: Mental status NL, Mood NL Labs/Diagnostic Data Labs Test 07/17/24 17:40 07/17/24 05:51 07/16/24 09:48 07/16/24 09:01 Range/Units Group A Streptococcus Rapid Negative White Blood Count 9.4 4.4-10.8 10^3/uL Red Blood Count 4.27 4.0-5.20 10^6/uL Hemoglobin 13.9 12.2-16.2 g/dL Hematocrit 41.5 36.0-46.0 % Mean Corpuscular Volume 97.2 80.0-100.0 fL Mean Corpuscular Hemoglobin 32.6 H 28.0-32.0 pg Mean Corpuscular Hemoglobin Concent 33.5 32.0-36.0 g/dL Red Cell Distribution Width 15.5 H 11.8-14.3 % Platelet Count 218 140-450 10^3/uL Mean Platelet Volume 9.0 6.9-10.8 fL Neutrophils (%) (Auto) 79.0 37.0-80.0 % Lymphocytes (%) (Auto) 13.3 10.0-50.0 % Monocytes (%) (Auto) 7.2 0.0-12.0 % Eosinophils (%) (Auto) 0.1 0.0-7.0 % Basophils (%) (Auto) 0.4 0.0-2.0 % Neutrophils # (Auto) 7.4 1.6-8.6 10 ^3/uL Lymphocytes # (Auto) 1.2 0.4-5.4 10 ^3/uL Monocytes # (Auto) 0.7 0-1.3 10 ^3/uL Eosinophils # (Auto) 0 0-0.8 10 ^3/uL Basophils # (Auto) 0 0-0.2 10 ^3/uL Nucleated Red Blood Cells 0.1 % Sodium Level 139 136-145 mmol/L Potassium Level 4.5 3.5-5.1 mmol/L Chloride Level 101 98-107 mmol/L Carbon Dioxide Level 31 20-31 mmol/L Anion Gap 7 5-15 Blood Urea Nitrogen 17 9-23 mg/dL Creatinine 1.01 0.550-1.02 mg/dL Glomerular Filtration Rate Calc 63 >90 mL/min BUN/Creatinine Ratio 16.8 10.0-20.0 Serum Glucose 101 74-106 mg/dL Calcium Level 9.8 8.7-10.4 mg/dL Total Bilirubin 0.8 0.2-1.0 mg/dL Aspartate Amino Transferase (AST) 9 L 13-40 U/L Alanine Aminotransferase (ALT) 19 7-40 U/L Alkaline Phosphatase 51 46-116 U/L Total Protein 6.6 5.7-8.2 g/dL Albumin 4.0 3.2-4.8 g/dL Troponin I High Sensitivity < 3 L </=34 ng/L B-Type Natriuretic Peptide 53.06 0-100 pg/mL Urine Color Colorless Yellow Urine Clarity Clear Clear Urine pH 7.5 5.0-9.0 Urine Specific [place] 1.005 1.001-1.035 Urine Protein Negative Negative Urine Ketones Negative Negative Urine Blood Negative Negative /uL Urine Nitrite Negative Negative Urine Bilirubin Negative Negative Urine Urobilinogen Normal Negative mg/dL Urine Leukocyte Esterase Negative Negative /uL Urine RBC 1 0 - 4 /hpf Urine Microscopic WBC 0-5 /HPF Urine Squamous Epithelial Cells Few <5 /hpf Urine Bacteria None seen None Seen /hpf Urine Glucose Normal Normal mg/dL Microbiology Date/Time Source Procedure Growth Status 07/16/24 22:25 Nose MRSA Screen - Final Complete NECK CT Impression: No evidence of significant abnormality involving the cervical soft tissues or surrounding structures within the limitations of noncontrast study.. CXR IMPRESSION: No acute disease. Problems(with codes): (1) Oropharyngeal dysphagia (2) Epigastric abdominal pain Plan/Recommendation Plan Protonix 40 mg IV daily NPO after midnight I will evaluate patient in the a.m. to see if she is stable for endoscopy Possible swallow evaluation Plan discussed with: Other (None) KATI POWELL MD Jul 17, 2024 23:00
[2024-07-18] VITALS (9 sets, daily range): BP systolic 101–173; BP diastolic 53–87; PULSE 60–76; RESP 12–20; TEMP 97.7–98.1; O2SAT 88–98
[2024-07-18] MEDS: LIDOCAINE VISCOUS 2% 15ML UD MT ONE (01:34)
[2024-07-18] MEDS: HYDROmorphone HCL 2 MG/ML VL/or syr IV PRN (04:49)
[2024-07-18] MEDS: ONDANSETRON HCL 4 MG/2 ML VIAL IV PRN (06:06)
[2024-07-18] MEDS: cefTRIAXone 1GM/50ML D5W 50 ML IV SCH (10:25)
--- NOTE | 2024-07-18 14:16 | DVH ---
Bilateral lower extremity venous duplex Clinical History: leg swelling Comparison: None Technique: Duplex Doppler evaluation of the deep venous systems of both lower extremities from the common femora l veins to the popliteal veins including color Doppler and spectral/pulsed waveform analysis was perf ormed. Findings: RIGHT SIDE: The common femoral vein demonstrates appropriate compressibility and waveform variability. There is compressibility/patency of the great saphenous vein at the proximal thigh. The femoral vein demonstrates appropriate compressibility and waveform variability. The deep femoral vein demonstrates appropriate compressibility and waveform variability. The popliteal vein demonstrates appropriate compressibility and waveform variability. There is normal compressibility at the tibioperoneal trunk. LEFT SIDE: The common femoral vein demonstrates appropriate compressibility and waveform variability. There is compressibility/patency of the great saphenous vein at the proximal thigh. The femoral vein demonstrates appropriate compressibility and waveform variability. The deep femoral vein demonstrates appropriate compressibility and waveform variability. The popliteal vein demonstrates appropriate compressibility and waveform variability. There is normal compressibility at the tibioperoneal trunk. Impression: No right or left femoropopliteal venous thrombosis.
--- NOTE | 2024-07-18 15:55 | DVHOP2 ---
Operative Report DATE OF OPERATION: 07/18/24 PROCEDURE: Upper Endoscopy with biopsy PREOPERATIVE INDICATION: The patient is a 64 -year-old female undergoing endoscopy for oropharyngeal dysphagia and substernal chest discomfort POSTOPERATIVE DIAGNOSES: 1. She had a 2 cm sliding-type hiatal hernia with acute atypical erosive esophagitis extending through the entire length of the esophagus with desquamation of the esophageal mucosa hyperemia erythema and superficial ulceration 2. Mild gastroduodenitis 3. Patient had evidence of oral thrush otherwise normal examination up to the 2nd and 3rd part of the duodenal PROCEDURE PERFORMED BY: Kati Cordero GI NURSE: Isai SCOPE: Olympus videoendoscope. ASA CLASS: 2. PREOPERATIVE MEDICATIONS: Mac sedation, Dr. Ochoa PROCEDURE IN DETAIL: After obtaining an informed consent, the patient was placed on left lateral decubitus position. The patient was then sedated with the above medications. A bite block was placed between her teeth. The endoscope was then passed through the oropharynx, into the esophagus, and through the stomach and pylorus up to the second and third part of the duodenum. The endoscope was then withdrawn. 2nd and 3rd part of the duodenum were normal and the duodenal bulb showed min imal duodenitis. Duodenal biopsies were obtained The pre-pyloric area and antrum showed minimal gastritis. On retroflexion the fundus and cardia were normal. Gastric biopsies were obtained. The endoscope was then withdrawn into the distal esophagus where she had a 2 cm sliding-type hiatal hernia. Patient did have acute but somewhat atypical erosive esophagitis with desquamat ion of the esophageal mucosa hyperemia erythema and superficial ulceration This was extending almost throughout the length of the esophagus. Esophageal biopsies were obtained. Patient had oral thrush in the posterior pharynx The patient tolerated the procedure well without difficulty. COMPLICATIONS : None SPECIMENS: Duodenal biopsies Gastric biopsies Esophageal biopsies DISPOSITION: Transfer back to the floor Stable PLAN: 1. Await for biopsy result 2. Will place pt on Protonix 40 mg bid IV 3. Carafate suspension 1 g p.o. 4 times a day 4. Nystatin swish and swallow 5 mL p.o. three times a day 5. We will empirically start oral acyclovir until biopsies rule out any viral inclusions 6. Clear liquid diet advance to full liquid and then soft mechanical KATI CORDERO MD Jul 18, 2024 15:55
--- NOTE | 2024-07-18 16:18 | DVHPN2 ---
Subjective Patient continues to have throat and abdominal pain Reviewed: Care Plan, H&P, Labs Changes from previous H/P or p: No Changes General: Per HPI Eyes: No Pain, No Vision change, No Conjunctivae inflammation, No Eyelid inflammation, No Other, No Redness ENT: No Ear pain, No Ear discharge, No Nose pain, No Nose discharge, No Nose congestion, No Mouth pain; Mouth swelling, Throat pain, Throat swelling; No Other Cardiovascular: No Chest Pain, No Palpitations, No Orthopnea, No Paroxysmal Noc. Dyspnea, No Edema, No Lt Headedness, No Other Respiratory: No Cough, No Dry, No Shortness of breath, No SOB with excertion, No Wheezing, No Hemoptysis, No Pleuritic Pain, No Sputum, No Other Gastrointestinal: No Nausea, No Vomiting, No Abdominal Pain, No Diarrhea, No Constipation, No Melena, No Hematochezia, No Other Genitourinary: No Dysuria, No Frequency, No Incontinence, No Hematuria, No Retention, No Other Musculoskeletal: No other, No neck pain, No shoulder pain, No arm pain, No back pain, No hand pain, No leg pain, No foot pain Skin: No Rash, No Lesions, No Jaundice, No Bruising, No Other Objective Vitals Vital Signs Date Time Temp Pulse Resp B/P (MAP) Pulse Ox O2 Delivery O2 Flow Rate FiO2 07/18/24 13:00 97.9 60 16 129/87 (101) 88 97.9 07/18/24 08:00 Room Air* 0 21 Intake/Output Intake and Output 07/18/24 07:00 Intake Total 1150 ml Balance 1150 ml Intake Oral 1150 ml # Voids 14 General Appearance: Alert, Oriented X3, Cooperative, mild distress HEENT: Atraumatic, PERRLA Cardiovascular: Normal S2 Abdomen: Normal bowel sounds Musculoskeletal: Normal sensory function, Normal motor function Psych/Mental Status: Mental status NL, Mood NL Medications Current Medications Medications Dose Ordered Sig/Mara Route Start Time Stop Time Status Last Admin Dose Admin Sodium Chloride 10 ml Q8HR IV 07/16/24 22:00 07/18/24 14:00 10 ML Acetaminophen/ Hydrocodone Bitart 1 tab Q4HP PRN PO 07/16/24 17:00 Ondansetron HCl 4 mg Q4HP PRN IV 07/16/24 17:00 07/18/24 06:06 4 MG Docusate Sodium 100 mg BIDPRN PRN PO 07/16/24 17:00 Acetaminophen 650 mg Q6HP PRN PO 07/16/24 17:00 07/17/24 05:28 650 MG Nitroglycerin 0.4 mg Q5MINP PRN SL 07/16/24 17:00 Bumetanide 1 mg DAILY PO 07/17/24 10:00 07/18/24 10:28 1 MG Metoprolol Tartrate 25 mg BID PO 07/16/24 22:00 07/18/24 10:27 25 MG Prednisone 10 mg DAILY PO 07/17/24 10:00 07/18/24 10:27 10 MG Aspirin 81 mg DAILY PO 07/17/24 10:00 07/18/24 10:27 81 MG Pantoprazole Sodium 40 mg DAILY PO 07/17/24 10:00 07/18/24 10:27 40 MG Pregabalin 100 mg TID PO 07/16/24 22:00 07/17/24 21:58 100 MG Methylprednisolone Sodium Succinate 40 mg DAILY IV 07/17/24 10:00 07/18/24 10:26 40 MG Albuterol 2.5 mg Q6HPRN PRN NEB 07/16/24 17:00 Ipratropium [place] 0.5 mg Q6HPRN PRN NEB 07/16/24 17:00 Ceftriaxone Sodium 50 ml @ 100 mls/hr DAILY@09 IV 07/18/24 09:00 07/18/24 10:25 100 MLS/HR Throat Lozenges 1 daniel Q2HP PRN MT 07/17/24 18:00 07/17/24 20:52 1 DANIEL Hydromorphone HCl 0.5 mg Q4HPRN PRN IV 07/18/24 04:00 07/18/24 04:49 0.5 MG Sucralfate 1 gm QID@0600,1130,1700,2200 PO 07/18/24 17:00 Nystatin 5 ml QID MT 07/18/24 18:00 Acyclovir 400 mg Q8HR GT 07/18/24 22:00 Laboratory Results Laboratory Tests 07/17/24 05:51 Urinalysis Test 07/16/24 09:01 Urine Color Colorless (Yellow) Urine Clarity Clear (Clear) Urine pH 7.5 (5.0-9.0) Urine Specific [place] 1.005 (1.001-1.035) Urine Protein Negative (Negative) Urine Ketones Negative (Negative) Urine Blood Negative /uL (Negative) Urine Nitrite Negative (Negative) Urine Bilirubin Negative (Negative) Urine Urobilinogen Normal mg/dL (Negative) Urine Leukocyte Esterase Negative /uL (Negative) Urine RBC 1 /hpf (0 - 4) Urine Microscopic WBC /HPF (0-5) Urine Squamous Epithelial Cells Few /hpf (<5) Urine Bacteria None seen /hpf (None Seen) Urine Glucose Normal mg/dL (Normal) Microbiology Microbiology Date/Time Source Procedure Growth Status 07/16/24 22:25 Nose MRSA Screen - Final Complete Labs and/or images reviewed: Labs reviewed by me, Image(s) reviewed by me Assessment/Plan Assessment/Plan Impression: -rule out tonsillitis -rule out strep A -questionable oral Nicole -obesity -acute on chronic diastolic heart failure -primary hypertension Plan: -CT scan of neck to rule out tonsillitis -strep a swab -GI consultation -continue diuresis -antihypertensives -viscous lidocaine Total time spent with patient discussing and formulating plan of care: 35 minutes. This medical document was created using an electronic medical record system with [employer] dictation system. Although this document has been carefully reviewed, there may still be some phonetic and typographical errors. These areas are purely typographical due to imperfections of the software programs, and do not reflect any compromise in the patient's medical care. Plan discussed with: Patient, Other (RN) My Orders Orders - RO GREENWOOD NP Procedure Category Date Status Time Throat Lozenges PHA 07/17/24 In Process (Cepastat Lozenges) 18:00 * [employer] Account Director CONS 07/17/24 Transmitted 17:55 * Dietary Consult CONS 07/17/24 Transmitted 23:27 Date of Service: Jul 17, 2024 Billing Provider: RO GREENWOOD NP Common Visit Codes: [id number] INP/OBS CARE(HIGH) RO GREENWOOD NP Jul 18, 2024 16:18
--- NOTE | 2024-07-18 16:19 | DVHPN2 ---
Subjective Patient continues to have throat and abdominal pain Reviewed: Care Plan, H&P, Labs Changes from previous H/P or p: No Changes General: Per HPI Eyes: No Pain, No Vision change, No Conjunctivae inflammation, No Eyelid inflammation, No Other, No Redness ENT: No Ear pain, No Ear discharge, No Nose pain, No Nose discharge, No Nose congestion, No Mouth pain; Mouth swelling, Throat pain, Throat swelling; No Other Cardiovascular: No Chest Pain, No Palpitations, No Orthopnea, No Paroxysmal Noc. Dyspnea, No Edema, No Lt Headedness, No Other Respiratory: No Cough, No Dry, No Shortness of breath, No SOB with excertion, No Wheezing, No Hemoptysis, No Pleuritic Pain, No Sputum, No Other Gastrointestinal: No Nausea, No Vomiting, No Abdominal Pain, No Diarrhea, No Constipation, No Melena, No Hematochezia, No Other Genitourinary: No Dysuria, No Frequency, No Incontinence, No Hematuria, No Retention, No Other Musculoskeletal: No other, No neck pain, No shoulder pain, No arm pain, No back pain, No hand pain, No leg pain, No foot pain Skin: No Rash, No Lesions, No Jaundice, No Bruising, No Other Objective Vitals Vital Signs Date Time Temp Pulse Resp B/P (MAP) Pulse Ox O2 Delivery O2 Flow Rate FiO2 07/18/24 13:00 97.9 60 16 129/87 (101) 88 97.9 07/18/24 08:00 Room Air* 0 21 Intake/Output Intake and Output 07/18/24 07:00 Intake Total 1150 ml Balance 1150 ml Intake Oral 1150 ml # Voids 14 General Appearance: Alert, Oriented X3, Cooperative, mild distress HEENT: Atraumatic, PERRLA Cardiovascular: Normal S2 Abdomen: Normal bowel sounds Musculoskeletal: Normal sensory function, Normal motor function Psych/Mental Status: Mental status NL, Mood NL Medications Current Medications Medications Dose Ordered Sig/Mara Route Start Time Stop Time Status Last Admin Dose Admin Sodium Chloride 10 ml Q8HR IV 07/16/24 22:00 07/18/24 14:00 10 ML Acetaminophen/ Hydrocodone Bitart 1 tab Q4HP PRN PO 07/16/24 17:00 Ondansetron HCl 4 mg Q4HP PRN IV 07/16/24 17:00 07/18/24 06:06 4 MG Docusate Sodium 100 mg BIDPRN PRN PO 07/16/24 17:00 Acetaminophen 650 mg Q6HP PRN PO 07/16/24 17:00 07/17/24 05:28 650 MG Nitroglycerin 0.4 mg Q5MINP PRN SL 07/16/24 17:00 Bumetanide 1 mg DAILY PO 07/17/24 10:00 07/18/24 10:28 1 MG Metoprolol Tartrate 25 mg BID PO 07/16/24 22:00 07/18/24 10:27 25 MG Prednisone 10 mg DAILY PO 07/17/24 10:00 07/18/24 10:27 10 MG Aspirin 81 mg DAILY PO 07/17/24 10:00 07/18/24 10:27 81 MG Pantoprazole Sodium 40 mg DAILY PO 07/17/24 10:00 07/18/24 10:27 40 MG Pregabalin 100 mg TID PO 07/16/24 22:00 07/17/24 21:58 100 MG Methylprednisolone Sodium Succinate 40 mg DAILY IV 07/17/24 10:00 07/18/24 10:26 40 MG Albuterol 2.5 mg Q6HPRN PRN NEB 07/16/24 17:00 Ipratropium [place] 0.5 mg Q6HPRN PRN NEB 07/16/24 17:00 Ceftriaxone Sodium 50 ml @ 100 mls/hr DAILY@09 IV 07/18/24 09:00 07/18/24 10:25 100 MLS/HR Throat Lozenges 1 daniel Q2HP PRN MT 07/17/24 18:00 07/17/24 20:52 1 DANIEL Hydromorphone HCl 0.5 mg Q4HPRN PRN IV 07/18/24 04:00 07/18/24 04:49 0.5 MG Sucralfate 1 gm QID@0600,1130,1700,2200 PO 07/18/24 17:00 Nystatin 5 ml QID MT 07/18/24 18:00 Acyclovir 400 mg Q8HR GT 07/18/24 22:00 Laboratory Results Laboratory Tests 07/17/24 05:51 Urinalysis Test 07/16/24 09:01 Urine Color Colorless (Yellow) Urine Clarity Clear (Clear) Urine pH 7.5 (5.0-9.0) Urine Specific [place] 1.005 (1.001-1.035) Urine Protein Negative (Negative) Urine Ketones Negative (Negative) Urine Blood Negative /uL (Negative) Urine Nitrite Negative (Negative) Urine Bilirubin Negative (Negative) Urine Urobilinogen Normal mg/dL (Negative) Urine Leukocyte Esterase Negative /uL (Negative) Urine RBC 1 /hpf (0 - 4) Urine Microscopic WBC /HPF (0-5) Urine Squamous Epithelial Cells Few /hpf (<5) Urine Bacteria None seen /hpf (None Seen) Urine Glucose Normal mg/dL (Normal) Microbiology Microbiology Date/Time Source Procedure Growth Status 07/16/24 22:25 Nose MRSA Screen - Final Complete Labs and/or images reviewed: Labs reviewed by me, Image(s) reviewed by me Assessment/Plan Assessment/Plan Impression: -rule out tonsillitis -rule out strep A -questionable oral Nicole -obesity -acute on chronic diastolic heart failure -primary hypertension Plan: -CT scan of neck to rule out tonsillitis: Ruled out -strep a swab : Negative -GI consultation : Patient underwent EGD with noted esophagitis and oral Nicole -continue diuresis -antihypertensives -advance diet as tolerated -oral swish and swallow -PPI -Carafate Total time spent with patient discussing and formulating plan of care: 35 minutes. This medical document was created using an electronic medical record system with [employer] dictation system. Although this document has been carefully reviewed, there may still be some phonetic and typographical errors. These areas are purely typographical due to imperfections of the software programs, and do not reflect any compromise in the patient's medical care. Plan discussed with: Patient, Other (RN) My Orders Orders - RO GREENWOOD NP Procedure Category Date Status Time Throat Lozenges PHA 07/17/24 In Process (Cepastat Lozenges) 18:00 * [employer] Security Engineer CONS 07/17/24 Transmitted 17:55 * Dietary Consult CONS 07/17/24 Transmitted 23:27 Date of Service: Jul 18, 2024 Billing Provider: RO GREENWOOD NP Common Visit Codes: [id number] INP/OBS CARE(HIGH) RO GREENWOOD NP Jul 18, 2024 16:19
[2024-07-18] MEDS: SUCRALFATE 1 GM/10 ML ORAL SUSP PO SCH (17:17)
[2024-07-18] MEDS: NYSTATIN (MOUTH-THROAT) 500,000 UNITS/5 ML SUSP MT SCH (18:49)
[2024-07-18] MEDS: ACYCLOVIR 200 MG/5 ML SUSP GT SCH (22:41)
[2024-07-19] VITALS (11 sets, daily range): BP systolic 115–147; BP diastolic 55–80; PULSE 61–79; RESP 16–18; TEMP 97.5–98.7; O2SAT 94–100
--- NOTE | 2024-07-19 15:09 | DVHPN2 ---
Subjective The patient is seen and examined at bedside. The patient had multiple complaint. Patient said she had too many secretion she needs a yonker and suction. Reviewed: Care Plan, H&P, Labs Changes from previous H/P or p: No Changes General: Per HPI Eyes: No Pain, No Vision change, No Conjunctivae inflammation, No Eyelid inflammation, No Other, No Redness ENT: No Ear pain, No Ear discharge, No Nose pain, No Nose discharge, No Nose congestion, No Mouth pain; Mouth swelling, Throat pain, Throat swelling; No Other Cardiovascular: No Chest Pain, No Palpitations, No Orthopnea, No Paroxysmal Noc. Dyspnea, No Edema, No Lt Headedness, No Other Respiratory: No Cough, No Dry, No Shortness of breath, No SOB with excertion, No Wheezing, No Hemoptysis, No Pleuritic Pain, No Sputum, No Other Gastrointestinal: No Nausea, No Vomiting, No Abdominal Pain, No Diarrhea, No Constipation, No Melena, No Hematochezia, No Other Genitourinary: No Dysuria, No Frequency, No Incontinence, No Hematuria, No Retention, No Other Musculoskeletal: No other, No neck pain, No shoulder pain, No arm pain, No back pain, No hand pain, No leg pain, No foot pain Skin: No Rash, No Lesions, No Jaundice, No Bruising, No Other Objective Vitals Vital Signs Date Time Temp Pulse Resp B/P (MAP) Pulse Ox O2 Delivery O2 Flow Rate FiO2 07/19/24 13:00 98.0 71 16 116/70 (85) 95 98.0 07/19/24 08:00 Room Air* 0 21 Intake/Output Intake and Output 07/19/24 06:59 Intake Total 590 ml Output Total 320 ml Balance 270 ml Intake Oral 540 ml IV Total 50 ml Output Urine Total 320 ml General Appearance: Alert, Oriented X3, Cooperative, mild distress HEENT: Atraumatic, PERRLA Cardiovascular: Normal S2 Abdomen: Normal bowel sounds Musculoskeletal: Normal sensory function, Normal motor function Psych/Mental Status: Mental status NL, Mood NL Medications Current Medications Medications Dose Ordered Sig/Mara Route Start Time Stop Time Status Last Admin Dose Admin Sodium Chloride 10 ml Q8HR IV 07/16/24 22:00 07/19/24 14:00 10 ML Acetaminophen/ Hydrocodone Bitart 1 tab Q4HP PRN PO 07/16/24 17:00 Ondansetron HCl 4 mg Q4HP PRN IV 07/16/24 17:00 07/18/24 06:06 4 MG Docusate Sodium 100 mg BIDPRN PRN PO 07/16/24 17:00 Acetaminophen 650 mg Q6HP PRN PO 07/16/24 17:00 07/17/24 05:28 650 MG Nitroglycerin 0.4 mg Q5MINP PRN SL 07/16/24 17:00 Bumetanide 1 mg DAILY PO 07/17/24 10:00 07/19/24 09:27 1 MG Metoprolol Tartrate 25 mg BID PO 07/16/24 22:00 07/19/24 09:27 25 MG Prednisone 10 mg DAILY PO 07/17/24 10:00 07/19/24 09:28 10 MG Aspirin 81 mg DAILY PO 07/17/24 10:00 07/19/24 09:27 81 MG Pantoprazole Sodium 40 mg DAILY PO 07/17/24 10:00 07/19/24 09:27 40 MG Pregabalin 100 mg TID PO 07/16/24 22:00 07/19/24 05:34 100 MG Methylprednisolone Sodium Succinate 40 mg DAILY IV 07/17/24 10:00 07/19/24 11:48 40 MG Albuterol 2.5 mg Q6HPRN PRN NEB 07/16/24 17:00 Ipratropium [place] 0.5 mg Q6HPRN PRN NEB 07/16/24 17:00 Ceftriaxone Sodium 50 ml @ 100 mls/hr DAILY@09 IV 07/18/24 09:00 07/19/24 09:26 100 MLS/HR Throat Lozenges 1 daniel Q2HP PRN MT 07/17/24 18:00 07/17/24 20:52 1 DANIEL Hydromorphone HCl 0.5 mg Q4HPRN PRN IV 07/18/24 04:00 07/19/24 09:23 0.5 MG Sucralfate 1 gm QID@0600,1130,1700,2200 PO 07/18/24 17:00 07/19/24 11:48 1 GM Nystatin 5 ml QID MT 07/18/24 18:00 07/19/24 11:48 5 ML Acyclovir 400 mg Q8HR GT 07/18/24 22:00 07/19/24 05:36 400 MG Laboratory Results Laboratory Tests 07/17/24 05:51 Urinalysis Test 07/16/24 09:01 Urine Color Colorless (Yellow) Urine Clarity Clear (Clear) Urine pH 7.5 (5.0-9.0) Urine Specific [place] 1.005 (1.001-1.035) Urine Protein Negative (Negative) Urine Ketones Negative (Negative) Urine Blood Negative /uL (Negative) Urine Nitrite Negative (Negative) Urine Bilirubin Negative (Negative) Urine Urobilinogen Normal mg/dL (Negative) Urine Leukocyte Esterase Negative /uL (Negative) Urine RBC 1 /hpf (0 - 4) Urine Microscopic WBC /HPF (0-5) Urine Squamous Epithelial Cells Few /hpf (<5) Urine Bacteria None seen /hpf (None Seen) Urine Glucose Normal mg/dL (Normal) Microbiology Microbiology Date/Time Source Procedure Growth Status 07/17/24 17:40 Throat Nose/Throat Culture - Preliminary Resulted 07/16/24 22:25 Nose MRSA Screen - Final Complete Labs and/or images reviewed: Labs reviewed by me Assessment/Plan Assessment/Plan -rule out tonsillitis -rule out strep A -questionable oral Nicole -obesity -acute on chronic diastolic heart failure -primary hypertension Plan: -CT scan of neck to rule out tonsillitis: Ruled out -strep a swab : Negative -GI consultation : Patient underwent EGD with noted esophagitis and oral Nicole -continue diuresis -antihypertensives -advance diet as tolerated -oral swish and swallow -PPI -Carafate Continuing current management The patient still have a lot of pain. Will continue to monitor EGD showed severe esophagitis and a hiatal hernia There was oral thrush and suspicion for possible viral esophagitis and multiple biopsies have been obtained Plan discussed with: Patient, Other (sister) Date of Service: Jul 19, 2024 Billing Provider: TAMIA WEBSTER MD Common Visit Codes: [id number] INP/OBS CARE(HIGH) TAMIA WEBSTER MD Jul 19, 2024 15:09
--- NOTE | 2024-07-19 15:13 | DVHPN2 ---
Reviewed: Care Plan, H&P, Labs General: Per HPI Eyes: No Pain, No Vision change, No Conjunctivae inflammation, No Eyelid inflammation, No Other, No Redness ENT: No Ear pain, No Ear discharge, No Nose pain, No Nose discharge, No Nose congestion, No Mouth pain; Mouth swelling, Throat pain, Throat swelling; No Other Cardiovascular: No Chest Pain, No Palpitations, No Orthopnea, No Paroxysmal Noc. Dyspnea, No Edema, No Lt Headedness, No Other Respiratory: No Cough, No Dry, No Shortness of breath, No SOB with excertion, No Wheezing, No Hemoptysis, No Pleuritic Pain, No Sputum, No Other Gastrointestinal: No Nausea, No Vomiting, No Abdominal Pain, No Diarrhea, No Constipation, No Melena, No Hematochezia, No Other Genitourinary: No Dysuria, No Frequency, No Incontinence, No Hematuria, No Retention, No Other Musculoskeletal: No other, No neck pain, No shoulder pain, No arm pain, No back pain, No hand pain, No leg pain, No foot pain Skin: No Rash, No Lesions, No Jaundice, No Bruising, No Other Objective Vitals Vital Signs Date Time Temp Pulse Resp B/P (MAP) Pulse Ox O2 Delivery O2 Flow Rate FiO2 07/19/24 13:00 98.0 71 16 116/70 (85) 95 98.0 07/19/24 08:00 Room Air* 0 21 Intake/Output Intake and Output 07/19/24 07:00 Intake Total 590 ml Output Total 320 ml Balance 270 ml Intake Oral 540 ml IV Total 50 ml Output Urine Total 320 ml General Appearance: Alert, Oriented X3, Cooperative, mild distress HEENT: Atraumatic, PERRLA Cardiovascular: Normal S2 Abdomen: Normal bowel sounds Musculoskeletal: Normal sensory function, Normal motor function Psych/Mental Status: Mental status NL, Mood NL Medications Current Medications Medications Dose Ordered Sig/Mara Route Start Time Stop Time Status Last Admin Dose Admin Sodium Chloride 10 ml Q8HR IV 07/16/24 22:00 07/19/24 14:00 10 ML Acetaminophen/ Hydrocodone Bitart 1 tab Q4HP PRN PO 07/16/24 17:00 Ondansetron HCl 4 mg Q4HP PRN IV 07/16/24 17:00 07/18/24 06:06 4 MG Docusate Sodium 100 mg BIDPRN PRN PO 07/16/24 17:00 Acetaminophen 650 mg Q6HP PRN PO 07/16/24 17:00 07/17/24 05:28 650 MG Nitroglycerin 0.4 mg Q5MINP PRN SL 07/16/24 17:00 Bumetanide 1 mg DAILY PO 07/17/24 10:00 07/19/24 09:27 1 MG Metoprolol Tartrate 25 mg BID PO 07/16/24 22:00 07/19/24 09:27 25 MG Prednisone 10 mg DAILY PO 07/17/24 10:00 07/19/24 09:28 10 MG Aspirin 81 mg DAILY PO 07/17/24 10:00 07/19/24 09:27 81 MG Pantoprazole Sodium 40 mg DAILY PO 07/17/24 10:00 07/19/24 09:27 40 MG Pregabalin 100 mg TID PO 07/16/24 22:00 07/19/24 05:34 100 MG Methylprednisolone Sodium Succinate 40 mg DAILY IV 07/17/24 10:00 07/19/24 11:48 40 MG Albuterol 2.5 mg Q6HPRN PRN NEB 07/16/24 17:00 Ipratropium [place] 0.5 mg Q6HPRN PRN NEB 07/16/24 17:00 Ceftriaxone Sodium 50 ml @ 100 mls/hr DAILY@09 IV 07/18/24 09:00 07/19/24 09:26 100 MLS/HR Throat Lozenges 1 daniel Q2HP PRN MT 07/17/24 18:00 07/17/24 20:52 1 DANIEL Hydromorphone HCl 0.5 mg Q4HPRN PRN IV 07/18/24 04:00 07/19/24 09:23 0.5 MG Sucralfate 1 gm QID@0600,1130,1700,2200 PO 07/18/24 17:00 07/19/24 11:48 1 GM Nystatin 5 ml QID MT 07/18/24 18:00 07/19/24 11:48 5 ML Acyclovir 400 mg Q8HR GT 07/18/24 22:00 07/19/24 05:36 400 MG Laboratory Results Laboratory Tests 07/17/24 05:51 Urinalysis Test 07/16/24 09:01 Urine Color Colorless (Yellow) Urine Clarity Clear (Clear) Urine pH 7.5 (5.0-9.0) Urine Specific [place] 1.005 (1.001-1.035) Urine Protein Negative (Negative) Urine Ketones Negative (Negative) Urine Blood Negative /uL (Negative) Urine Nitrite Negative (Negative) Urine Bilirubin Negative (Negative) Urine Urobilinogen Normal mg/dL (Negative) Urine Leukocyte Esterase Negative /uL (Negative) Urine RBC 1 /hpf (0 - 4) Urine Microscopic WBC /HPF (0-5) Urine Squamous Epithelial Cells Few /hpf (<5) Urine Bacteria None seen /hpf (None Seen) Urine Glucose Normal mg/dL (Normal) Microbiology Microbiology Date/Time Source Procedure Growth Status 07/17/24 17:40 Throat Nose/Throat Culture - Preliminary Resulted 07/16/24 22:25 Nose MRSA Screen - Final Complete TAMIA WEBSTER MD Jul 19, 2024 15:13
--- NOTE | 2024-07-19 21:59 | DVHPN2 ---
Progress Note - Dictate Date Seen: Jul 19, 2024 Medical Necessity Reason Pt with a Central, PICC or Fol: No Subjective No new complaints Patient states she does not feel good She is still having some atypical chest discomfort Patient is able to tolerate clear liquid diet Patient states her daughter visited today EGD showed severe esophagitis and a hiatal hernia There was oral thrush and suspicion for possible viral esophagitis and multiple biopsies have been obtained vital signs Vital Sign Date Time Temp Pulse Resp B/P (MAP) Pulse Ox O2 Delivery O2 Flow Rate FiO2 07/19/24 21:29 70 118/60 07/19/24 20:00 Room Air* 0 21 07/19/24 19:46 97 07/19/24 16:38 97.8 16 97.8 Total Intake and Output 07/18/24 07/18/24 07/19/24 15:00 23:00 07:00 Intake Total 420 ml 50 ml 120 ml Output Total 320 ml Balance 420 ml 50 ml -200 ml medications Current Medications Medications Dose Ordered Sig/Mara Route Start Time Stop Time Status Last Admin Dose Admin Sodium Chloride 10 ml Q8HR IV 07/16/24 22:00 07/19/24 14:00 10 ML Acetaminophen/ Hydrocodone Bitart 1 tab Q4HP PRN PO 07/16/24 17:00 Ondansetron HCl 4 mg Q4HP PRN IV 07/16/24 17:00 07/19/24 15:14 4 MG Docusate Sodium 100 mg BIDPRN PRN PO 07/16/24 17:00 Acetaminophen 650 mg Q6HP PRN PO 07/16/24 17:00 07/17/24 05:28 650 MG Nitroglycerin 0.4 mg Q5MINP PRN SL 07/16/24 17:00 Bumetanide 1 mg DAILY PO 07/17/24 10:00 07/19/24 09:27 1 MG Metoprolol Tartrate 25 mg BID PO 07/16/24 22:00 07/19/24 21:29 25 MG Prednisone 10 mg DAILY PO 07/17/24 10:00 07/19/24 09:28 10 MG Aspirin 81 mg DAILY PO 07/17/24 10:00 07/19/24 09:27 81 MG Pantoprazole Sodium 40 mg DAILY PO 07/17/24 10:00 07/19/24 09:27 40 MG Pregabalin 100 mg TID PO 07/16/24 22:00 07/19/24 21:29 100 MG Methylprednisolone Sodium Succinate 40 mg DAILY IV 07/17/24 10:00 07/19/24 11:48 40 MG Albuterol 2.5 mg Q6HPRN PRN NEB 07/16/24 17:00 Ipratropium [place] 0.5 mg Q6HPRN PRN NEB 07/16/24 17:00 Ceftriaxone Sodium 50 ml @ 100 mls/hr DAILY@09 IV 07/18/24 09:00 07/19/24 09:26 100 MLS/HR Throat Lozenges 1 daniel Q2HP PRN MT 07/17/24 18:00 07/17/24 20:52 1 DANIEL Hydromorphone HCl 0.5 mg Q4HPRN PRN IV 07/18/24 04:00 07/19/24 09:23 0.5 MG Sucralfate 1 gm QID@0600,1130,1700,2200 PO 07/18/24 17:00 07/19/24 21:29 1 GM Nystatin 5 ml QID MT 07/18/24 18:00 07/19/24 21:29 5 ML Acyclovir 400 mg Q8HR GT 07/18/24 22:00 07/19/24 21:39 400 MG objective General Appearance: Alert, Oriented X3, Cooperative, mild distress HEENT: Atraumatic, PERRLA, EOMI Respiratory: Clear to auscultation, Normal air movement Cardiovascular: Regular rate, Normal S1, Normal S2, No murmurs Abdominal: Normal bowel sounds, Soft, No tenderness Extremities: No clubbing, No cyanosis, No edema Skin: No rashes, No breakdown, No significant lesion Neuro: Normal gait, Normal speech, Strength at 5/5 X4 ext Psych/Mental Status: Mental status NL, Mood NL laboratory and microbiology Laboratory Tests 07/17/24 05:51 Test 07/17/24 05:51 Range/Units Serum Glucose 101 74-106 mg/dL Problems(with codes): (1) Oral thrush (2) Hiatal hernia (3) Esophagitis determined by endoscopy (4) Epigastric abdominal pain (5) Oropharyngeal dysphagia (6) Diastolic heart failure (7) Gastritis Prognosis Plan Advance to full liquid diet then soft mechanical Continue oral Carafate, oral nystatin, oral acyclovir suspension Awaiting final biopsy results Supportive care for now Dietary Evaluation Review Comments: Provide 2GNa texture as tolerated after her GI procedure. TF Jevity 45ml/hr (60g Pro 1296 kcal) if pt remains swallowing impaired. Expected Outcomes/Goals: gradual wt loss. Plan discussed with: Patient KATI POWELL MD Jul 19, 2024 21:59
[2024-07-20] VITALS (10 sets, daily range): BP systolic 123–152; BP diastolic 66–84; PULSE 67–83; RESP 16–20; TEMP 97.8–98.7; O2SAT 94–97
[2024-07-20] MEDS: HYDROcodone-ACET 5/325MG TAB PO PRN (05:30)
--- NOTE | 2024-07-20 20:32 | DVHPN2 ---
Progress Note - Dictate Date Seen: Jul 20, 2024 Medical Necessity Reason Pt with a Central, PICC or Fol: No Subjective No new complaints Patient is feeling better today She still complains of odynophagia She is still having some atypical chest discomfort EGD showed severe esophagitis and a hiatal hernia There was oral thrush and suspicion for possible viral esophagitis and multiple biopsies have been obtained vital signs Vital Sign Date Time Temp Pulse Resp B/P (MAP) Pulse Ox O2 Delivery O2 Flow Rate FiO2 07/20/24 19:26 96 Room Air* 0 21 07/20/24 17:00 98.5 83 18 127/77 (94) 98.5 Total Intake and Output 07/19/24 07/19/24 07/20/24 14:59 22:59 06:59 Intake Total 1050 ml 600 ml Balance 1050 ml 600 ml medications Current Medications Medications Dose Ordered Sig/Mara Route Start Time Stop Time Status Last Admin Dose Admin Sodium Chloride 10 ml Q8HR IV 07/16/24 22:00 07/20/24 13:36 10 ML Acetaminophen/ Hydrocodone Bitart 1 tab Q4HP PRN PO 07/16/24 17:00 07/20/24 05:30 1 TAB Ondansetron HCl 4 mg Q4HP PRN IV 07/16/24 17:00 07/20/24 10:52 4 MG Docusate Sodium 100 mg BIDPRN PRN PO 07/16/24 17:00 Acetaminophen 650 mg Q6HP PRN PO 07/16/24 17:00 07/17/24 05:28 650 MG Nitroglycerin 0.4 mg Q5MINP PRN SL 07/16/24 17:00 Bumetanide 1 mg DAILY PO 07/17/24 10:00 07/20/24 10:20 1 MG Metoprolol Tartrate 25 mg BID PO 07/16/24 22:00 07/20/24 10:20 25 MG Prednisone 10 mg DAILY PO 07/17/24 10:00 07/20/24 10:21 10 MG Aspirin 81 mg DAILY PO 07/17/24 10:00 07/20/24 10:21 81 MG Pantoprazole Sodium 40 mg DAILY PO 07/17/24 10:00 07/20/24 10:20 40 MG Pregabalin 100 mg TID PO 07/16/24 22:00 07/20/24 13:36 100 MG Methylprednisolone Sodium Succinate 40 mg DAILY IV 07/17/24 10:00 07/20/24 10:21 40 MG Albuterol 2.5 mg Q6HPRN PRN NEB 07/16/24 17:00 Ipratropium [place] 0.5 mg Q6HPRN PRN NEB 07/16/24 17:00 Ceftriaxone Sodium 50 ml @ 100 mls/hr DAILY@09 IV 07/18/24 09:00 07/20/24 08:58 100 MLS/HR Throat Lozenges 1 daniel Q2HP PRN MT 07/17/24 18:00 07/17/24 20:52 1 DANIEL Hydromorphone HCl 0.5 mg Q4HPRN PRN IV 07/18/24 04:00 07/19/24 09:23 0.5 MG Sucralfate 1 gm QID@0600,1130,1700,2200 PO 07/18/24 17:00 07/20/24 16:40 1 GM Nystatin 5 ml QID MT 07/18/24 18:00 07/20/24 16:40 5 ML Acyclovir 400 mg Q8HR GT 07/18/24 22:00 07/20/24 13:36 400 MG objective General Appearance: Alert, Oriented X3, Cooperative, mild distress HEENT: Atraumatic, PERRLA, EOMI Respiratory: Clear to auscultation, Normal air movement Cardiovascular: Regular rate, Normal S1, Normal S2, No murmurs Abdominal: Normal bowel sounds, Soft, No tenderness Extremities: No clubbing, No cyanosis, No edema Skin: No rashes, No breakdown, No significant lesion Neuro: Normal gait, Normal speech, Strength at 5/5 X4 ext Psych/Mental Status: Mental status NL, Mood NL laboratory and microbiology Laboratory Tests 07/17/24 05:51 Test 07/17/24 05:51 Range/Units Serum Glucose 101 74-106 mg/dL Problems(with codes): (1) Diastolic heart failure (2) Esophagitis determined by endoscopy (3) Oral thrush (4) Hiatal hernia (5) Epigastric abdominal pain (6) Oropharyngeal dysphagia (7) Gastritis Prognosis Plan Advance to pureed and then soft diet Continue oral Carafate, oral nystatin, oral acyclovir suspension , IV PPI Awaiting final biopsy results Supportive care for now Patient was given reassurance Dietary Evaluation Review Comments: Provide 2GNa texture as tolerated after her GI procedure. TF Jevity 45ml/hr (60g Pro 1296 kcal) if pt remains swallowing impaired. Expected Outcomes/Goals: gradual wt loss. Plan discussed with: Patient KATI POWELL MD Jul 20, 2024 20:32
--- NOTE | 2024-07-20 22:21 | DVHPN2 ---
Subjective The patient is seen and examined at bedside. The patient had multiple complaint. The patient complained of severe throat pain today and can hardly keep anything down. Reviewed: Care Plan, H&P, Labs Changes from previous H/P or p: No Changes General: Per HPI Eyes: No Pain, No Vision change, No Conjunctivae inflammation, No Eyelid inflammation, No Other, No Redness ENT: No Ear pain, No Ear discharge, No Nose pain, No Nose discharge, No Nose congestion, No Mouth pain; Mouth swelling, Throat pain, Throat swelling; No Other Cardiovascular: No Chest Pain, No Palpitations, No Orthopnea, No Paroxysmal Noc. Dyspnea, No Edema, No Lt Headedness, No Other Respiratory: No Cough, No Dry, No Shortness of breath, No SOB with excertion, No Wheezing, No Hemoptysis, No Pleuritic Pain, No Sputum, No Other Gastrointestinal: No Nausea, No Vomiting, No Abdominal Pain, No Diarrhea, No Constipation, No Melena, No Hematochezia, No Other Genitourinary: No Dysuria, No Frequency, No Incontinence, No Hematuria, No Retention, No Other Musculoskeletal: No other, No neck pain, No shoulder pain, No arm pain, No back pain, No hand pain, No leg pain, No foot pain Skin: No Rash, No Lesions, No Jaundice, No Bruising, No Other Objective Vitals Vital Signs Date Time Temp Pulse Resp B/P (MAP) Pulse Ox O2 Delivery O2 Flow Rate FiO2 07/20/24 21:40 73 139/84 07/20/24 19:26 96 Room Air* 0 21 07/20/24 17:00 98.5 18 98.5 Intake/Output Intake and Output 07/20/24 07:00 Intake Total 1650 ml Balance 1650 ml Intake Oral 1650 ml # Voids 2 General Appearance: Alert, Oriented X3, Cooperative, mild distress HEENT: Atraumatic, PERRLA Cardiovascular: Normal S2 Abdomen: Normal bowel sounds Musculoskeletal: Normal sensory function, Normal motor function Psych/Mental Status: Mental status NL, Mood NL Medications Current Medications Medications Dose Ordered Sig/Mara Route Start Time Stop Time Status Last Admin Dose Admin Sodium Chloride 10 ml Q8HR IV 07/16/24 22:00 07/20/24 21:36 10 ML Acetaminophen/ Hydrocodone Bitart 1 tab Q4HP PRN PO 07/16/24 17:00 07/20/24 05:30 1 TAB Ondansetron HCl 4 mg Q4HP PRN IV 07/16/24 17:00 07/20/24 10:52 4 MG Docusate Sodium 100 mg BIDPRN PRN PO 07/16/24 17:00 Acetaminophen 650 mg Q6HP PRN PO 07/16/24 17:00 07/17/24 05:28 650 MG Nitroglycerin 0.4 mg Q5MINP PRN SL 07/16/24 17:00 Bumetanide 1 mg DAILY PO 07/17/24 10:00 07/20/24 10:20 1 MG Metoprolol Tartrate 25 mg BID PO 07/16/24 22:00 07/20/24 21:40 25 MG Prednisone 10 mg DAILY PO 07/17/24 10:00 07/20/24 10:21 10 MG Aspirin 81 mg DAILY PO 07/17/24 10:00 07/20/24 10:21 81 MG Pantoprazole Sodium 40 mg DAILY PO 07/17/24 10:00 07/20/24 10:20 40 MG Pregabalin 100 mg TID PO 07/16/24 22:00 07/20/24 21:36 100 MG Methylprednisolone Sodium Succinate 40 mg DAILY IV 07/17/24 10:00 07/20/24 10:21 40 MG Albuterol 2.5 mg Q6HPRN PRN NEB 07/16/24 17:00 Ipratropium [place] 0.5 mg Q6HPRN PRN NEB 07/16/24 17:00 Ceftriaxone Sodium 50 ml @ 100 mls/hr DAILY@09 IV 07/18/24 09:00 07/20/24 08:58 100 MLS/HR Throat Lozenges 1 daniel Q2HP PRN MT 07/17/24 18:00 07/17/24 20:52 1 DANIEL Hydromorphone HCl 0.5 mg Q4HPRN PRN IV 07/18/24 04:00 07/19/24 09:23 0.5 MG Sucralfate 1 gm QID@0600,1130,1700,2200 PO 07/18/24 17:00 07/20/24 21:36 1 GM Nystatin 5 ml QID MT 07/18/24 18:00 07/20/24 21:36 5 ML Acyclovir 400 mg Q8HR GT 07/18/24 22:00 07/20/24 21:38 400 MG Laboratory Results Laboratory Tests 07/17/24 05:51 Urinalysis Test 07/16/24 09:01 Urine Color Colorless (Yellow) Urine Clarity Clear (Clear) Urine pH 7.5 (5.0-9.0) Urine Specific [place] 1.005 (1.001-1.035) Urine Protein Negative (Negative) Urine Ketones Negative (Negative) Urine Blood Negative /uL (Negative) Urine Nitrite Negative (Negative) Urine Bilirubin Negative (Negative) Urine Urobilinogen Normal mg/dL (Negative) Urine Leukocyte Esterase Negative /uL (Negative) Urine RBC 1 /hpf (0 - 4) Urine Microscopic WBC /HPF (0-5) Urine Squamous Epithelial Cells Few /hpf (<5) Urine Bacteria None seen /hpf (None Seen) Urine Glucose Normal mg/dL (Normal) Microbiology Microbiology Date/Time Source Procedure Growth Status 07/17/24 17:40 Throat Nose/Throat Culture - Final Complete 07/16/24 22:25 Nose MRSA Screen - Final Complete Labs and/or images reviewed: Labs reviewed by me Assessment/Plan Assessment/Plan -rule out tonsillitis -rule out strep A -questionable oral Nicole -obesity -acute on chronic diastolic heart failure -primary hypertension Plan: -CT scan of neck to rule out tonsillitis: Ruled out -strep a swab : Negative -GI consultation : Patient underwent EGD showed severe esophagitis and a hiatal hernia There was oral thrush and suspicion for possible viral esophagitis and multiple biopsies have been obtained -continue diuresis -antihypertensives -advance diet as tolerated -oral swish and swallow -PPI -Carafate Continuing current management The patient still have a lot of pain. Encouraged the patient to try to eat clear liquid diet and see if she can keep it down without vomiting Explained to the patient is take awhile to heal condition of Nicole in the esophagus Discharge planning This medical document was created using an electronic medical record system with [employer] direct computerized dictation system. Although this document has been carefully reviewed, there may still be some phonetic and typographical errors. These areas are purely typographical due to imperfections of the software programs, and do not reflect any compromise in the patient's medical care. Plan discussed with: Patient Date of Service: Jul 20, 2024 Billing Provider: TAMIA WEBSTER MD Common Visit Codes: [id number] INP/OBS CARE(HIGH) TAMIA WEBSTER MD Jul 20, 2024 22:21
[2024-07-21] VITALS (8 sets, daily range): BP systolic 122–148; BP diastolic 63–103; PULSE 79–103; RESP 16–22; TEMP 96.1–98.5; O2SAT 93–97
[2024-07-21] MEDS ORDERED: [UNRECOGNIZED DRUG - CODE] PO (12:35)
[2024-07-21] MEDS ORDERED: NYS5LQ MT (12:35)
[2024-07-21] MEDS ORDERED: SUCR1SUS26 PO (12:35)
--- NOTE | 2024-07-21 12:43 | DVHDS2 ---
Discharge Summary Date of Admission Jul 16, 2024 at 16:47 Date of Discharge: Jul 21, 2024 Admitting Diagnosis Difficulty swallowing, questionable anaphylactic reaction Labs/Diagnostic Data: Laboratory Results Test 07/17/24 17:40 07/17/24 05:51 07/16/24 09:48 07/16/24 09:01 Group A Streptococcus Rapid Negative White Blood Count 9.4 10^3/uL (4.4-10.8) Red Blood Count 4.27 10^6/uL (4.0-5.20) Hemoglobin 13.9 g/dL (12.2-16.2) Hematocrit 41.5 % (36.0-46.0) Mean Corpuscular Volume 97.2 fL (80.0-100.0) Mean Corpuscular Hemoglobin 32.6 pg (28.0-32.0) Mean Corpuscular Hemoglobin Concent 33.5 g/dL (32.0-36.0) Red Cell Distribution Width 15.5 % (11.8-14.3) Platelet Count 218 10^3/uL (140-450) Mean Platelet Volume 9.0 fL (6.9-10.8) Neutrophils (%) (Auto) 79.0 % (37.0-80.0) Lymphocytes (%) (Auto) 13.3 % (10.0-50.0) Monocytes (%) (Auto) 7.2 % (0.0-12.0) Eosinophils (%) (Auto) 0.1 % (0.0-7.0) Basophils (%) (Auto) 0.4 % (0.0-2.0) Neutrophils # (Auto) 7.4 10 ^3/uL (1.6-8.6) Lymphocytes # (Auto) 1.2 10 ^3/uL (0.4-5.4) Monocytes # (Auto) 0.7 10 ^3/uL (0-1.3) Eosinophils # (Auto) 0 10 ^3/uL (0-0.8) Basophils # (Auto) 0 10 ^3/uL (0-0.2) Nucleated Red Blood Cells 0.1 % Sodium Level 139 mmol/L (136-145) Potassium Level 4.5 mmol/L (3.5-5.1) Chloride Level 101 mmol/L (98-107) Carbon Dioxide Level 31 mmol/L (20-31) Anion Gap 7 (5-15) Blood Urea Nitrogen 17 mg/dL (9-23) Creatinine 1.01 mg/dL (0.550-1.02) Glomerular Filtration Rate Calc 63 mL/min (>90) BUN/Creatinine Ratio 16.8 (10.0-20.0) Serum Glucose 101 mg/dL (74-106) Calcium Level 9.8 mg/dL (8.7-10.4) Total Bilirubin 0.8 mg/dL (0.2-1.0) Aspartate Amino Transferase (AST) 9 U/L (13-40) Alanine Aminotransferase (ALT) 19 U/L (7-40) Alkaline Phosphatase 51 U/L (46-116) Total Protein 6.6 g/dL (5.7-8.2) Albumin 4.0 g/dL (3.2-4.8) Troponin I High Sensitivity < 3 ng/L (</=34) B-Type Natriuretic Peptide 53.06 pg/mL (0-100) Urine Color Colorless (Yellow) Urine Clarity Clear (Clear) Urine pH 7.5 (5.0-9.0) Urine Specific [place] 1.005 (1.001-1.035) Urine Protein Negative (Negative) Urine Ketones Negative (Negative) Urine Blood Negative /uL (Negative) Urine Nitrite Negative (Negative) Urine Bilirubin Negative (Negative) Urine Urobilinogen Normal mg/dL (Negative) Urine Leukocyte Esterase Negative /uL (Negative) Urine RBC 1 /hpf (0 - 4) Urine Microscopic WBC /HPF (0-5) Urine Squamous Epithelial Cells Few /hpf (<5) Urine Bacteria None seen /hpf (None Seen) Urine Glucose Normal mg/dL (Normal) Other Laboratory Tests 07/17/24 05:51 Brief Hx & Hospital Course: History of Present Illness Nohemy Melendez is a 64-year-old female with past medical history of hypertension, CHF, asthma, anxiety, and depression, who came in for difficulty swallowing. Patient states she was recently prescribed Lasix. After taking it she began having tongue swelling and throat swelling. She called her provider and was switched to Bumex 1 mg. However she states it is still difficult to swallow and she had not been able to eat the last 2 days. Patient also states that she was hospitalized a little over a week ago for her asthma and was placed on a tapering dose of prednisone. Course of hospitalization: Long discussion was made with the patient regarding her symptoms. Inspection of her oropharyngeal airway reveals questionable thrush to her pharyngeal airway as well as reddening, questionably enlarged tonsils. CT scan was performed of her neck which ruled out tonsillitis. Rapid strep was also negative. Given the patient's persistent pain in her chest, probable esophageal in nature, GI consultation was obtained. Patient states that her pain resolved with viscous lidocaine. The patient underwent EGD with questionable esophageal Nicole. Discussion was made with the patient regarding her onset of symptoms as well as recent illnesses. Apparently, the patient was treated with antibiotic therapy as well as Tamiflu for both viral and bacterial pneumonia several weeks ago. Patient was also taken for formoterol/budesonide inhaler, which may attributed to her pharyngeal Nicole. Discussion was made with the patient to swish and swallow after using her inhalers. Patient also will be discharged on continue treatment with acyclovir liquid, Carafate liquid, as well as nystatin swish and swallow 4 times a day for the next seven days. Patient was agreeable with discharge plan. All questions answered. Physical examination General: Alert and Oriented x3. No acute distress. Well-nourished. Obese Eyes: EOMI. Anicteric. HENT: Moist mucous membranes. Lungs: Clear to auscultation bilaterally. No accessory muscle use. Cardiovascular: Regular rate and rhythm. No murmur. No JVD. Abdomen: Soft, non-tender and non-distended. No palpable masses. Extremities: No edema. Non-tender. Skin: No rashes or lesions. Warm. Neurologic: No focal neurological deficits. CN II-XII grossly intact, but not individually tested. Psychiatric: Cooperative. Appropriate mood and affect. Total time spent with patient discussing and formulating plan of care: 35 minutes. This medical document was created using an electronic medical record system with [employer] dictation system. Although this document has been carefully reviewed, there may still be some phonetic and typographical errors. These areas are purely typographical due to imperfections of the software programs, and do not reflect any compromise in the patient's medical care. Condition at Discharge: Fair Final Diagnosis/Problems List Esophagitis secondary to Nicole Secondary diagnosis -ruled out tonsillitis -ruled out strep A -questionable oral Nicole -obesity -acute on chronic diastolic heart failure -primary hypertension Discharge Disposition: Home Discharge Instruct/Medications Diet: Cardiac 2g Na,low cholest (2 gm sodium, low cholesterol) Medications: Refer to medication reconciliation Continue all home medications 36 Discharge Statement: "Patient was advised to return to the ER or call 911 if any headaches, dizziness, shortness of breath, chest pain, abdominal pain, bleeding, fevers, or worsening of medical condition. Patient was counseled about treatment plan, medications, possible side effects, patientverbalized understanding. All questions were answered to the best of my ability. This discharge took greater then 30 minutes in planning, reviewing documentation, counseling the patient, and discussing with other team members." ASSESSMENT ASSESSMENT Assessment Date of Service: Jul 21, 2024 Billing Provider: RO GREENWOOD NP Common Visit Codes: 82014-SFJ/OBS DISCH DAY >30min RO GREENWOOD NP Jul 21, 2024 12:43
[2024-07-21] MEDS: ACYCLOVIR 200 MG/5 ML SUSP PO SCH (13:56)
[2024-07-21] MEDS ORDERED: TRAM50TA2 PO (16:09)
[2024-07-21] MEDS ORDERED: ZOFR4T PO (17:01)
--- NOTE | 2024-07-21 17:23 | DVHPNRES ---
Progress Note Date Seen: Jul 21, 2024 Resident Creating Document: FRANK WOOD RESIDENT Medical Necessity Reason Pt with a Central, PICC or Fol: No Subjective Review of Systems Patient seen and examined at bedside. Patient is odynophagia has been improving. Continue with current management. No any other new complaints. No nausea, no vomiting. Objective vital signs Vital Sign Date Time Temp Pulse Resp B/P (MAP) Pulse Ox O2 Delivery O2 Flow Rate FiO2 07/21/24 16:24 98.5 103 16 95 07/21/24 14:26 142/73 (96) 07/21/24 08:00 Room Air* 0 21 Total Intake and Output 07/20/24 07/20/24 07/21/24 15:00 23:00 07:00 Intake Total 350 ml 500 ml 820 ml Output Total 0 ml 600 ml Balance 350 ml 500 ml 220 ml medications Current Medications Medications Dose Ordered Sig/Mara Route Start Time Stop Time Status Last Admin Dose Admin Sodium Chloride 10 ml Q8HR IV 07/16/24 22:00 07/21/24 13:49 10 ML Acetaminophen/ Hydrocodone Bitart 1 tab Q4HP PRN PO 07/16/24 17:00 07/20/24 05:30 1 TAB Ondansetron HCl 4 mg Q4HP PRN IV 07/16/24 17:00 07/21/24 11:04 4 MG Docusate Sodium 100 mg BIDPRN PRN PO 07/16/24 17:00 Acetaminophen 650 mg Q6HP PRN PO 07/16/24 17:00 07/17/24 05:28 650 MG Nitroglycerin 0.4 mg Q5MINP PRN SL 07/16/24 17:00 Bumetanide 1 mg DAILY PO 07/17/24 10:00 07/21/24 11:06 1 MG Metoprolol Tartrate 25 mg BID PO 07/16/24 22:00 07/21/24 11:07 25 MG Prednisone 10 mg DAILY PO 07/17/24 10:00 07/21/24 11:05 10 MG Aspirin 81 mg DAILY PO 07/17/24 10:00 07/21/24 11:05 81 MG Pantoprazole Sodium 40 mg DAILY PO 07/17/24 10:00 07/21/24 11:07 40 MG Pregabalin 100 mg TID PO 07/16/24 22:00 07/21/24 13:53 100 MG Methylprednisolone Sodium Succinate 40 mg DAILY IV 07/17/24 10:00 07/21/24 11:05 40 MG Albuterol 2.5 mg Q6HPRN PRN NEB 07/16/24 17:00 Ipratropium Voca 0.5 mg Q6HPRN PRN NEB 07/16/24 17:00 Ceftriaxone Sodium 50 ml @ 100 mls/hr DAILY@09 IV 07/18/24 09:00 07/21/24 11:12 100 MLS/HR Throat Lozenges 1 daniel Q2HP PRN MT 07/17/24 18:00 07/17/24 20:52 1 DANIEL Hydromorphone HCl 0.5 mg Q4HPRN PRN IV 07/18/24 04:00 07/21/24 11:10 0.5 MG Sucralfate 1 gm QID@0600,1130,1700,2200 PO 07/18/24 17:00 07/21/24 11:07 1 GM Nystatin 5 ml QID MT 07/18/24 18:00 07/21/24 11:30 5 ML Acyclovir 400 mg Q8HR PO 07/21/24 14:00 07/21/24 13:56 400 MG Examination General Appearance: Cooperative. Well developed. Well nourished. NAD Head Exam: Normal inspection Neck Exam: Normal inspection. Non-tender. Normal alignment Pulmonary/Respiratory: Chest non-tender. Clear bilateral breath sounds Cardiovascular/Chest: Regular rate and rhythm. No murmurs. No JVD. Peripheral Pulses: 2+ Radial (R). 2+ Radial (L). 2+ Pedal (R). 2+ Pedal (L) Abdominal Exam: Normal bowel sounds. Soft. Nontender. No hepatospenomegaly. No masses Ankle Exam: Negative ankle edema Lower extremities: Negative lower extremity edema Neuro/Mental Status: A&O x4. Coherent Thoughts/Psych: Normal thought pattern. Appropriate mood and affect. Good judgement and insight Appearance: In no acute distress Skin Exam: Normal inspection. Normal color. Warm. Dry laboratory and microbiology Laboratory Tests 07/17/24 05:51 Test 07/17/24 05:51 Range/Units Serum Glucose 101 74-106 mg/dL Microbiology Date/Time Source Procedure Growth Status 07/17/24 17:40 Throat Nose/Throat Culture - Final Complete 07/16/24 22:25 Nose MRSA Screen - Final Complete Problem List/Assessment/Plan Problem List/Assessment/Plan Oropharyngeal dysphagia Esophagitis determined by endoscopic Oral thrush Hiatal hernia Epigastric abdominal pain Acute gastritis Plan/recommendation Dr. Cordero -underwent endoscopy on 07/18/2024 which showed two Timothy sliding hiatal hernia, atypical erosive esophagitis, esophageal mucosa hyperemia and erythema with superficial ulceration, mild gastroduodenitis and oral thrush. -awaiting biopsy results, follow up in outpatient setting for results. -we will continue with acyclovir acyclovir 400 mg Q eight until biopsy results came back. Continue with Carafate 1 g t.i.d., Protonix 40 mg p.o. daily, nystatin 5 mL q.i.d.. -CT of the abdomen is unremarkable. -continue with clear liquid diet, advance to full liquid and then soft mechanical as tolerated. -follow with GI clinic in outpatient setting. Patient has been discharged. Plan discussed with: Patient, Other (rn) Dietary Evaluation Review Comments: Provide 2GNa texture as tolerated after her GI procedure. TF Jevity 45ml/hr (60g Pro 1296 kcal) if pt remains swallowing impaired. Expected Outcomes/Goals: gradual wt loss. FRANK WOOD RESIDENT Jul 21, 2024 17:23
[2024-08-06] MEDS ORDERED: [UNRECOGNIZED DRUG - CODE] PO (11:36)
[2024-08-06] MEDS ORDERED: SUCR1SUS25 PO (11:36)
== END 2024-07-21 16:21 | disposition home or self-care (01) | DRG 380 ==
LOC: ER 08:43 → TELE 16:47 → TELE-E-ADS 21:19
PROVIDERS: ADMIT Nurse Practitioner Acute Care; ATTEND Nurse Practitioner Acute Care
PROC: 0DB68ZX Excision of Stomach, Via Natural or Artificial Opening Endoscopic, Diagnostic (ICD-10-PCS; 2024-07-18)
PROC: 0DB58ZX Excision of Esophagus, Via Natural or Artificial Opening Endoscopic, Diagnostic (ICD-10-PCS; 2024-07-18)
PROC: 0DB98ZX Excision of Duodenum, Via Natural or Artificial Opening Endoscopic, Diagnostic (ICD-10-PCS; principal; 2024-07-18 15:35)
DX: K22.10 Ulcer of esophagus without bleeding (principal); I50.33 Acute on chronic diastolic (congestive) heart failure; B37.81 Candidal esophagitis; B37.0 Candidal stomatitis; K29.00 Acute gastritis without bleeding; I11.0 Hypertensive heart disease with heart failure; F32.A Depression, unspecified; J45.909 Unspecified asthma, uncomplicated; E66.9 Obesity, unspecified; K29.90 Gastroduodenitis, unspecified, without bleeding; K44.9 Diaphragmatic hernia without obstruction or gangrene; F17.210 Nicotine dependence, cigarettes, uncomplicated; F41.9 Anxiety disorder, unspecified; Z96.643 Presence of artificial hip joint, bilateral; Z88.1 Allergy status to other antibiotic agents; Z88.5 Allergy status to narcotic agent; Z90.49 Acquired absence of other specified parts of digestive tract; Z98.891 History of uterine scar from previous surgery; Z79.899 Other long term (current) drug therapy; Z79.82 Long term (current) use of aspirin
CPT/HCPCS: 36415; 70490; 71045; 80048; 80053; 81001; 83880; 84484; 85025; 87070; 87081; 87880; 93005; 93970; 94640; 96374; 96375; G0378; J0133; J2405; J2470

== ENCOUNTER → 2024-08-06 | Outpatient (CLI) | payer BC, OTHER ==
[~2024-08-06] MED LIST changes: +ASPI1TAB20 PO; -AUG875T PO; +BUME1TAB3 PO; +MET25T PO; +NYS5LQ MT; +PANT40TA2 PO; +PRED10TA PO; +PREG100C PO; -PROM1SOL4 PO; +SUCR1SUS25 PO; +SUCR1SUS26 PO; +TRAM50TA2 PO; +ZOFR4T PO; +[UNRECOGNIZED DRUG - CODE] PO
[2024-08-06 12:18] LABS: Basophils # (auto) 0 10 ^3/uL (0-0.2); Basophils % (auto) 1.1 % (0.0-2.0); Eosinophils # (auto) 0.1 10 ^3/uL (0-0.8); Hematocrit 39.3 % (36.0-46.0); Hemoglobin 13.1 g/dL (12.2-16.2); Lymphocytes # (auto) 1.8 10 ^3/uL (0.4-5.4); Lymphocytes % (auto) 43.4 % (10.0-50.0); Mean Corpuscular Hemoglobin 32.2 pg (28.0-32.0); Mean Corpuscular Hgb Conc. 33.3 g/dL (32.0-36.0); Mean Corpuscular Volume 96.8 fL (80.0-100.0); Monocytes # (auto) 0.5 10 ^3/uL (0-1.3); Monocytes % (auto) 12.5 % (0.0-12.0); Neutrophils # (auto) 1.7 10 ^3/uL (1.6-8.6); Nucleated Red Blood Cells % 0.2 %; Platelet Count (auto) 328 10^3/uL (140-450); Red Blood Cells 4.06 10^6/uL (4.0-5.20); White Blood Cell 4.2 10^3/uL (4.4-10.8)
[2024-08-06 13:04] LABS: Alanine Aminotransferase 16 U/L (7-40); Albumin 4.1 g/dL (3.2-4.8); Alkaline Phosphatase 70 U/L (46-116); Anion Gap 9 (5-15); Aspartate Aminotransferase 16 U/L (13-40); Bilirubin, Total 0.4 mg/dL (0.2-1.0); Calcium 9.5 mg/dL (8.7-10.4); Carbon Dioxide 25 mmol/L (20-31); Chloride 105 mmol/L (98-107); Glucose 78 mg/dL (74-106); Potassium 3.5 mmol/L (3.5-5.1); Sodium 139 mmol/L (136-145); Total Protein 6.8 g/dL (5.7-8.2)
[2024-08-06 13:08] LABS: INR 1.02 (0.9-1.15); Prothrombin Time 10.8 sec (9.3-11.8)
[2024-08-06 13:12] LABS: BUN/Creatinine Ratio 5.1 (10.0-20.0); Blood Urea Nitrogen < 5 mg/dL (9-23)
== END | disposition home or self-care (01) ==
LOC: LAB 11:55
PROVIDERS: ATTEND Internal Medicine Gastroenterology
DX: K21.00 Gastro-esophageal reflux disease with esophagitis, without bleeding (principal)
CPT/HCPCS: 36415; 80053; 85025; 85610; 86703; 86803; 87340

== ENCOUNTER 2024-11-21 10:35 | Day surgery (SDC) | payer OTHER ==
[2024-11-19 12:12] LABS: Hemoglobin 14.5 g/dL (12.2-16.2); Mean Corpuscular Hemoglobin 31.7 pg (28.0-32.0); Mean Corpuscular Hgb Conc. 33.8 g/dL (32.0-36.0); Mean Corpuscular Volume 93.6 fL (80.0-100.0); Platelet Count (auto) 218 10^3/uL (140-450); Red Blood Cells 4.59 10^6/uL (4.0-5.20); Red Cell Distribution Width 15.5 % (11.8-14.3); White Blood Cell 4.6 10^3/uL (4.4-10.8)
[2024-11-19 12:26] LABS: Band Neutrophils % (manual) 0; Blast Cells 0; INR 0.99 (0.9-1.15); Metamyelocytes % 0; Myelocytes % 0; Partial Thromboplastin Time 28.5 SEC (24.5-34.5); Promyelocytes % 0; Prothrombin Time 10.5 sec (9.3-11.8); Reactive Lymphocytes 0
[2024-11-19 12:27] LABS: Alanine Aminotransferase 11 U/L (7-40); Albumin 4.6 g/dL (3.2-4.8); Alkaline Phosphatase 84 U/L (46-116); Anion Gap 6 (5-15); BUN/Creatinine Ratio 9.8 (10.0-20.0); Blood Urea Nitrogen 12 mg/dL (9-23); Carbon Dioxide 28 mmol/L (20-31); Glucose 85 mg/dL (74-106); Sodium 142 mmol/L (136-145)
[2024-11-19 12:28] LABS: Aspartate Aminotransferase 13 U/L (13-40); Bilirubin, Total 0.5 mg/dL (0.2-1.0); Calcium 10.5 mg/dL (8.7-10.4); Chloride 108 mmol/L (98-107)
[2024-11-19 13:06] LABS: Basophils % (manual) 1 (0.0-2.0); Eosinophils % (manual) 3 (0-7); Lymphocytes % (manual) 59 (10.0-50.0); Monocytes % (manual) 9 (0-12); Platelet Estimate Adequate
[~2024-11-21] VITALS: Ht 157.5 cm; Wt 79.4 kg
[~2024-11-21 10:35] MED LIST changes: -ALBU108A5 IN; +ASCO500T11 GT; -ASPI1TAB20 PO; +CHOL500046 PO; +CYAN-17 PO; +LEVA3NEB IN; -METH-1181 PO; -NYS5LQ MT; -PRED10TA PO; -SUCR1SUS25 PO; -SUCR1SUS26 PO; -TRAM50TA2 PO; -ZOFR4T PO; -[UNRECOGNIZED DRUG - CODE] PO
[2024-11-21] MEDS ORDERED: PROPOFOL 10 MG/ML 20 ML IV ONE (13:13)
[2024-11-21] MEDS ORDERED: LIDOCAINE 2% (LOCAL ANESTH.) PF 5ml SDV ONE (13:13)
[2024-11-21] MEDS ORDERED: ePHEDrine SULFATE 50 MG/ML AMP ONE (13:27)
[2024-11-21] MEDS ORDERED: ceFAZolin 1GM VL ONE (13:31)
[2024-11-21 13:32] VITALS: PULSE 69; RESP 12; O2SAT 100
--- NOTE | 2024-11-21 13:44 | DVHOP2 ---
Operative Report DATE OF OPERATION: 11/21/24 PROCEDURE: Upper Endoscopy with removal of PEG tube and biopsy PREOPERATIVE INDICATION: The patient is a 64 -year-old female undergoing endoscopy for re-evaluation of herpes esophagitis and removal of PEG tube POSTOPERATIVE DIAGNOSES: 1. 1 cm sliding-type hiatal hernia with slightly irregular squamocolumnar junction no significant erosive esophagitis at this time and complete resolution of previously noted herpes esophagitis 2. Mild antral gastritis otherwise normal examination up to the 2nd and 3rd part of the duodenum 3. Previously placed percutaneous gastrostomy tube was removed per orally as per standard protocol after disconnecting externally 4. Repeat endoscopy confirmed no mucosal injury or significant bleeding except for minimal oozing from biopsy sites PROCEDURE PERFORMED BY: Kati Cordero GI NURSE: Marleen SCOPE: Olympus videoendoscope. ASA CLASS: 3 PREOPERATIVE MEDICATIONS: Mac sedation, Nile Ron; IV Ancef 1 g PROCEDURE IN DETAIL: After obtaining an informed consent, the patient was placed on left lateral decubitus position. The patient was then sedated with the above medications. A bite block was placed between her teeth. The endoscope was then passed through the oropharynx, into the esophagus, and through the stomach and pylorus up to the second and third part of the duodenum. The endoscope was then withdrawn. And 3rd part of the duodenum and the duodenal bulb were normal. Duodenal biopsies were obtained. The pre-pyloric area and antrum showed minimal gastritis. Gastric biopsies were obtained. On retroflexion the fundus cardia and angularis were normal. A PEG tube was noted in the distal body of the stomach The endoscope was then withdrawn into the distal esophagus where the patient had a 1 cm sliding-type hiatal hernia slightly irregular squamocolumnar junction There was no residual esophagitis or inflammation of the esophagus at this time. GE junction and distal esophageal biopsies were obtained. The endoscope was then passed back into the stomach and using a polypectomy snare I was able to grab the phalange of the PEG tube The PEG tube was disconnected or cut from outside and the phalange was pulled out per orally without any significant resistance Repeat endoscopy confirmed removal of PEG tube and no mucosal injury or bleeding except for minimal oozing from biopsy sites The patient tolerated the procedure well without difficulty. A dressing was applied at the gastrostomy tube site COMPLICATIONS : None SPECIMENS: Duodenal biopsies Gastric biopsies GE junction biopsies DISPOSITION: Stable D/C to home PLAN: 1. Await for biopsy result 2. Continue Protonix 40 mg p.o. daily 3. Resume GI soft diet advance as tolerated 4. Outpatient follow up with me in 4-6 weeks to review results and discuss further management 5. Local dry dressing to gastrostomy tube site over the next 2-3 days KATI CORDERO MD Nov 21, 2024 13:44
[2024-11-21 14:05] VITALS: BP 128/74; PULSE 69; RESP 16; O2SAT 100
== END 2024-11-21 14:12 | disposition home or self-care (01) ==
LOC: GI 10:35
PROVIDERS: ATTEND Internal Medicine Gastroenterology
DX: K29.50 Unspecified chronic gastritis without bleeding (principal); K21.00 Gastro-esophageal reflux disease with esophagitis, without bleeding; I12.9 Hypertensive chronic kidney disease with stage 1 through stage 4 chronic kidney disease, or unspecified chronic kidney disease; K44.9 Diaphragmatic hernia without obstruction or gangrene; N18.9 Chronic kidney disease, unspecified; J44.9 Chronic obstructive pulmonary disease, unspecified; E66.9 Obesity, unspecified; Z79.899 Other long term (current) drug therapy; Z98.890 Other specified postprocedural states; Z88.8 Allergy status to other drugs, medicaments and biological substances; Z88.1 Allergy status to other antibiotic agents
CPT/HCPCS: 36415; 43239; 43247; 43251; 80053; 85007; 85027; 85610; 85730; 88305; 88312; 88342; J0690; J2003; J2704; J7030

== ENCOUNTER → 2025-01-02 | Outpatient (CLI) | payer OTHER ==
[2025-01-02 10:29] LABS: Hematocrit 44.3 % (36.0-46.0); Hemoglobin 15.1 g/dL (12.2-16.2); Mean Corpuscular Hemoglobin 32.4 pg (28.0-32.0); Mean Corpuscular Volume 95.1 fL (80.0-100.0); Nucleated Red Blood Cells % 0.2 %
[2025-01-02 10:51] LABS: Alanine Aminotransferase 10 U/L (7-40); Alkaline Phosphatase 78 U/L (46-116); Anion Gap 5 (5-15); BUN/Creatinine Ratio 10.4 (10.0-20.0); Blood Urea Nitrogen 13 mg/dL (9-23); Calcium 10.4 mg/dL (8.7-10.4); Carbon Dioxide 27 mmol/L (20-31); Glucose 81 mg/dL (74-106); Potassium 4.0 mmol/L (3.5-5.1); Sodium 143 mmol/L (136-145); Total Protein 7.7 g/dL (5.7-8.2); Triglycerides 109 mg/dL (< 150)
[2025-01-02 10:52] LABS: Bilirubin, Total 0.8 mg/dL (0.2-1.0); Chloride 111 mmol/L (98-107); HDL Cholesterol 48 mg/dL (40-59)
[2025-01-02 10:57] LABS: Cholesterol 224 mg/dL (< 200)
[2025-01-02 11:46] LABS: Albumin 4.5 g/dL (3.2-4.8)
== END | disposition home or self-care (01) ==
LOC: LAB 09:20
DX: E55.9 Vitamin D deficiency, unspecified (principal); E66.9 Obesity, unspecified; H10.9 Unspecified conjunctivitis
CPT/HCPCS: 36415; 80053; 80061; 82306; 83036; 84439; 84443; 85025; 85652

== ENCOUNTER 2025-03-20 10:20 | Day surgery (SDC) | payer OTHER ==
[2025-03-13 10:02] LABS: Hematocrit 41.4 % (36.0-46.0); Hemoglobin 13.9 g/dL (12.2-16.2); Mean Corpuscular Hemoglobin 32.7 pg (28.0-32.0); Mean Corpuscular Volume 97.4 fL (80.0-100.0)
[2025-03-13 10:18] LABS: INR 0.97 (0.9-1.15); Partial Thromboplastin Time 28.8 SEC (24.5-34.5); Prothrombin Time 10.3 sec (9.3-11.8)
[2025-03-13 10:26] LABS: Urine Protein, UAD Negative (Negative)
[2025-03-13 10:35] LABS: Alanine Aminotransferase 11 U/L (7-40); Alkaline Phosphatase 68 U/L (46-116); Anion Gap 5 (5-15); BUN/Creatinine Ratio 9.0 (10.0-20.0); Blood Urea Nitrogen 11 mg/dL (9-23); Calcium 9.1 mg/dL (8.7-10.4); Carbon Dioxide 26 mmol/L (20-31); Potassium 3.8 mmol/L (3.5-5.1); Sodium 143 mmol/L (136-145); Total Protein 7.7 g/dL (5.7-8.2)
[2025-03-13 10:36] LABS: Albumin 4.2 g/dL (3.2-4.8); Bilirubin, Total 0.4 mg/dL (0.2-1.0)
[2025-03-13 10:39] LABS: Chloride 112 mmol/L (98-107); Glucose 66 mg/dL (74-106)
[2025-03-13 11:41] LABS: Anisocytosis Slight; Stomatocytes Few; Total Cells Counted 100.0 (100)
[~2025-03-20] VITALS: Ht 157.5 cm; Wt 81.6 kg
[~2025-03-20 10:20] MED LIST changes: -LEVA3NEB IN; +ROSU5TAB24 PO
[2025-03-20] MEDS ORDERED: LIDOCAINE 1% (LOCAL ANESTH.) PF 5ml SDV ONE (11:55)
[2025-03-20] MEDS ORDERED: PROPOFOL 10 MG/ML 20 ML IV ONE (11:55)
[2025-03-20 12:21] VITALS: PULSE 62; RESP 12; TEMP 97.5; O2SAT 100
--- NOTE | 2025-03-20 12:29 | DVHOP2 ---
Operative Report DATE OF OPERATION: 03/20/25 PROCEDURE: Colonoscopy with cold snare polypectomy. PREOPERATIVE INDICATION: The patient is a 64 -year-old female undergoing colonoscopy for colon cancer screening POSTOPERATIVE DIAGNOSES: 1. [id number] sigmoid diverticular disease with diverticular associated sigmoiditis from which biopsies were obtained 2. 3-4 mm benign-appearing inflammatory polyp seen in the sigmoid that was seen and removed by cold snare polypectomy 3. Trace internal hemorrhoids otherwise normal examination up to the cecum and terminal ileum PROCEDURE PERFORMED BY: Kati Cordero M.D. SCOPE: Olympus videocolonoscope. ASA CLASS: 2 PREOPERATIVE MEDICATIONS: Nile Ray PROCEDURE IN DETAIL: After obtaining an informed consent, the patient was placed on left lateral decubitus position. She was then sedated with the above medications. A rectal examination was performed that was normal. The colonoscope was then passed through the anus into the rectosigmoid and through the descending, transverse, and ascending colon up to the cecum with visualization of the appendiceal orifice, base of the cecum and the ileocecal valve. The colonoscope was then withdrawn. The distal 5-10 cm of the terminal ileum were normal No masses or colitis were seen. Patient had [id number] sigmoid diverticular disease with sigmoiditis Sigmoid biopsies were obtained. Patient had a 3-4 mm benign-appearing sigmoid polyp that appeared inflammatory This was removed by cold snare polypectomy and the specimens were retrieved On retroflexion and straight on view she had trace internal hemorrhoids The patient tolerated the procedure well without difficulty. WITHDRAWAL TIME: 7 minutes QUALITY OF THE PREP: [place] Bowel Prep score: 9 COMPLICATIONS : None SPECIMENS: Sigmoid biopsies Sigmoid polyp DISPOSITION: Stable D/C to home PLAN: 1. Repeat colonoscopy base on biopsy result likely in 5 years 2. Resume GI soft diet advance as tolerated 3. Increase fluid and fiber intake 4. Hold aspirin NSAIDs and blood thinners for 5-7 days 5. Outpatient follow up with me in 2-4 weeks to review results and discuss further management KATI CORDERO MD Mar 20, 2025 12:29
[2025-03-20 12:30] VITALS: PULSE 60; RESP 15; O2SAT 100
[2025-03-20 12:51] VITALS: BP 116/62; PULSE 64; RESP 12; O2SAT 96
== END 2025-03-20 13:11 | disposition home or self-care (01) ==
LOC: GI 10:20
PROVIDERS: ATTEND Internal Medicine Gastroenterology
DX: Z12.11 Encounter for screening for malignant neoplasm of colon (principal); K51.40 Inflammatory polyps of colon without complications; K57.30 Diverticulosis of large intestine without perforation or abscess without bleeding; K64.8 Other hemorrhoids; D12.5 Benign neoplasm of sigmoid colon; K52.9 Noninfective gastroenteritis and colitis, unspecified; Z88.1 Allergy status to other antibiotic agents; Z88.8 Allergy status to other drugs, medicaments and biological substances; B00.89 Other herpesviral infection
CPT/HCPCS: 36415; 45380; 45385; 80053; 81001; 85007; 85027; 85610; 85730; 88305; J2704

== ENCOUNTER 2025-03-30 09:13 | Outpatient (CLI) | payer BC, OTHER | END 2025-03-30 17:00 | disposition home or self-care (01) | LOC: LAB 09:13 | DX: R51.9 Headache, unspecified (principal); I73.9 Peripheral vascular disease, unspecified | CPT/HCPCS: 36415; 82164; 86780 ==

== ENCOUNTER 2025-05-21 12:43 | Outpatient (CLI) | payer OTHER | END 2025-05-21 17:00 | disposition home or self-care (01) | LOC: LAB 12:43 | DX: R04.2 Hemoptysis (principal); R05.9 Cough, unspecified | CPT/HCPCS: 86480 ==

== ENCOUNTER 2025-05-27 09:13 | Outpatient (CLI) | payer OTHER ==
[2025-05-27] MEDS ORDERED: ALBUTEROL SULF 2.5 MG/0.5ML(0.5%) NEB SOLN ONE (09:46)
== END 2025-05-27 17:00 | disposition home or self-care (01) ==
LOC: RT 09:13
PROVIDERS: ATTEND Internal Medicine Pulmonary Disease
DX: J45.909 Unspecified asthma, uncomplicated (principal)
CPT/HCPCS: 94060; 94727; 94729